=== PATIENT | female | born 1935 | race American Indian/Alaskan Native ===

== ENCOUNTER 2018-11-09 14:26 | Inpatient (IN) | payer MEDICARE ==
--- NOTE | 2018-11-09 14:39 | Event Note ---
ED Screening Note ED Screening Note: sp glf at home to er via ems pt states she got up to get lunch and fell hit head and arm smells of urine found 30 m later per pt charge nurse aware This initial assessment/diagnostic orders/clinical plan/treatment(s) is/are subject to change based on patients health status, clinical progression and re- assessment by fellow clinical providers in the ED. Further treatment and workup at subsequent clinical providers discretion. Patient/guardian urged not to elope from the ED as their condition may be serious if not clinically assessed and managed. Initial orders include: labs ua exam on stretcher and xrays as appropriate
[2018-11-09 15:09] LABS: Hematocrit 31.4 % (30.3-42.9); Mean Corpuscular HGB Conc 35 % (30-34); Mean Corpuscular Hemoglobin 35 pg (28-32); Mean Corpuscular Volume 99 fl (79-97); Platelet Count 275 K/mm3 (140-440); Red Blood Count 3.18 M/mm3 (3.65-5.03)
[2018-11-09 15:33] LABS: Calcium 11.3 mg/dL (8.4-10.2)
[2018-11-09 15:49] LABS: Chol/HDL Ratio 2.23 %
--- NOTE | 2018-11-09 16:19 | XRay Report ---
CHEST 1 VIEW INDICATION: CHEST PAIN. COMPARISON: None. FINDINGS: Support devices: None. Heart: Within normal limits. Lungs: No acute air space or interstitial disease. Bronchiectasis of the right lung base. Pleura: No significant pleural effusion. No pneumothorax. Additional findings: None. IMPRESSION: 1. No acute findings. Signer Name: Al Bruno MD Signed: 11/09/2018 4:15 PM Workstation Name: [id number]
[2018-11-09 16:27] LABS: Albumin 4.2 g/dL (3.9-5); Bilirubin,Direct 0.3 mg/dL (0-0.2)
--- NOTE | 2018-11-09 17:32 | Cat Scan Report ---
CT head without contrast Clinical history: Headache, fall. FINDINGS: No previous exams are available for comparison. There is moderate cerebral white matter dis ease most consistent with microvascular angiopathy. There is also moderate cerebral atrophy with asso ciated prominence of the ventricular system. There is a hematoma involving the left lateral scalp. However, there is no clear CT evidence of acute intracranial hemorrhage or significant mass effect. The visualized paranasal sinuses are clear. The calvarium appears intact. All CT scans at this location are performed using the CT dose reduction for ALA[place]lee by means of automated exposure control. IMPRESSION: There is a hematoma involving the left lateral scalp without CT evidence of acute intracranial hemorr melia. 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 Signer Name: Michael Topete MD Signed: 11/09/2018 5:27 PM Workstation Name: [id number]
--- NOTE | 2018-11-09 17:39 | Cat Scan Report ---
CT cervical spine without contrast Clinical history: Neck pain, trauma. FINDINGS: No previous exams are available for comparison. The cystic changes along the base of the od ontoid appear to be on an advanced degenerative basis at. There are mild adjacent hypertrophic change s at. There is no clear CT evidence of acute fracture involving the cervical spine. There is a central disc protrusion at C4-5 which appears to mildly flatten the ventral cord. The face t and uncovertebral joint hypertrophy result in marked neural foraminal narrowing bilaterally. There is moderate disc space narrowing with mild endplate changes at C4-5 and C5-6 at. There is marke d right and moderate left foraminal narrowing at C4-5. There is moderate to marked left foraminal samia rowing at C5-6. The right-sided osteophyte/disc complex at this level mildly flattens the right ventr al cord. The spondylosis at C6-7 effaces the ventral subarachnoid space at. There is marked right and moderate left neural foraminal narrowing at. There is suggestion of minimal anterolisthesis at C7-T1 which is likely on a degenerative basis given the facet joint hypertrophy at. There is associated mild to mod erate foraminal narrowing. No prevertebral soft tissue fluid collections are identified. There is dense atherosclerotic calcific ation involving the carotid bifurcations. All CT scans at this location are performed using the CT do se reduction for ALARA by means of automated exposure control. IMPRESSION: There is no CT evidence of acute fracture involving the cervical spine. There are multilevel advanced degenerative changes as detailed above. Signer Name: Michael Topete MD Signed: 11/09/2018 5:34 PM Workstation Name: [id number]
[2018-11-09] MEDS ORDERED: NACL 0.9% 1000 ML 1,000 ML IV ONE (19:24)
[2018-11-09] MEDS ORDERED: ASPIRIN PO ONE (19:51)
--- NOTE | 2018-11-09 19:52 | Emergency Department Report ---
ED Fall HPI - General Chief Complaint: Fall Stated Complaint: FALL/BACK PAIN Time Seen by Provider: 11/09/18 14:38 Source: patient Mode of arrival: Wheelchair Limitations: No Limitations - History of Present Illness Initial Comments: 83-year-old female with past medical history diabetes, hypertension, and previous A. fib presents to the hospital for fall and generalized weakness. On October 21 patient had increasing her Lasix increased to 40 mg due to persistent chronic left leg swelling and pain. Patient also takes a combination medication that includes hydrochlorothiazide. The last few weeks she has been having increased dizziness, nausea, and generalized weakness today while trying to ambulate she fell and when is able to get up she did strike the left side of her head and denies LOC. Patient only complains of left leg pain at this time which apparently is chronic. No complaints of vomiting, diarrhea, or fever. Patient denies anticoagulants use. Daughter at the bedside assisting with history of present illness. Her doctors are currently [facility] affiliated the last 6 months and wear with [facility] prior to that. - Related Data Home Medications Medication Instructions Recorded Confirmed Last Taken Furosemide [Lasix TAB] 40 mg PO DAILY 11/09/18 11/09/18 Unknown Losartan/Hydrochlorothiazide 1 each PO DAILY 11/09/18 11/09/18 Unknown [Losartan-Hctz 100-25 mg Tab] Metoprolol [Lopressor] 25 mg PO BID 11/09/18 11/09/18 Unknown metFORMIN [Glucophage] 500 mg PO BID 11/09/18 11/09/18 Unknown Allergies Allergy/AdvReac Type Severity Reaction Status Date / Time No Known Allergies Allergy Unverified 11/09/18 14:45 ED Review of Systems ROS: Stated complaint: FALL/BACK PAIN Other details as noted in HPI Comment: All other systems reviewed and negative ED Past Medical Hx - Past Medical History Hx Hypertension: Yes Hx Diabetes: Yes (NIDDM) Additional medical history: AFib - Surgical History Past Surgical History?: No - Social History Smoking Status: Former Smoker Substance Use Type: None - Medications Home Medications: Home Medications Medication Instructions Recorded Confirmed Last Taken Type Furosemide [Lasix TAB] 40 mg PO DAILY 11/09/18 11/09/18 Unknown History Losartan/Hydrochlorothiazide 1 each PO DAILY 11/09/18 11/09/18 Unknown History [Losartan-Hctz 100-25 mg Tab] Metoprolol [Lopressor] 25 mg PO BID 11/09/18 11/09/18 Unknown History metFORMIN [Glucophage] 500 mg PO BID 11/09/18 11/09/18 Unknown History ED Physical Exam - General Limitations: No Limitations - Other Other exam information: General: No limitations, patient is alert in no acute distress Head exam: Left parietal scalp tenderness with hematoma Eyes exam: Normal appearance, pupils equal reactive to light, extraocular movements intact ENT: Moist mucous membrane, normal oropharynx Neck exam: Normal inspection, full range of motion, no meningismus nontender Respiratory exam: Clear to auscultation bilateral, no wheezes, rales, crackles Cardiovascular: Normal rate and rhythm, normal heart sounds Abdomen: Soft, nondistended, and nontender, with normal bowel sounds, no rebound, or guarding Extremity: Full range of motion, left leg swelling greater than the right with tenderness. Back: Normal Inspection, full range of motion, no tenderness Neurologic: Alert, cranial nerves intact, equal foot dorsiflexion, limited antigravity strength (4/5) of left leg secondary to pain. Other extremities 5/5 sensation intact. Speech clear without signs of facial droop. Psychiatric: normal affect, normal mood Skin: Warm, dry, intact ED Course Vital Signs 11/09/18 11/09/18 11/09/18 14:43 17:30 19:16 Temperature 97.6 F Pulse Rate 70 72 74 Respiratory 18 22 20 Rate Blood Pressure 159/69 124/65 O2 Sat by Pulse 100 100 100 Oximetry - Consultations Consultation #1: 11/09/18 20:27 case d/w Dr Dwight tate, will consult ED Medical Decision Making - Lab Data Result diagrams: 11/09/18 14:55 11/09/18 14:55 Lab Results 11/09/18 11/09/18 11/09/18 Range/Units 14:55 14:55 15:44 WBC 6.0 (4.5-11.0) K/mm3 RBC 3.18 L (3.65-5.03) M/mm3 Hgb 11.0 (10.1-14.3) gm/dl Hct 31.4 (30.3-42.9) % MCV 99 H (79-97) fl MCH 35 H (28-32) pg MCHC 35 H (30-34) % RDW 13.0 L (13.2-15.2) % Plt Count 275 (140-440) K/mm3 Sodium 120 L (137-145) mmol/L Potassium 4.2 (3.6-5.0) mmol/L Chloride 77.3 L (98-107) mmol/L Carbon Dioxide 22 (22-30) mmol/L Anion Gap 25 mmol/L BUN 78 H (7-17) mg/dL Creatinine 2.0 H (0.7-1.2) mg/dL Estimated GFR 24 ml/min BUN/Creatinine Ratio 39 % Glucose 149 H (65-100) mg/dL Calcium 11.3 H (8.4-10.2) mg/dL Total Bilirubin (0.1-1.2) mg/dL Direct Bilirubin (0-0.2) mg/dL Indirect Bilirubin mg/dL AST (5-40) units/L ALT (7-56) units/L Alkaline Phosphatase (35-129) units/L Total Creatine Kinase (30-135) units/L Troponin T 0.032 H (0.00-0.029) ng/mL NT-Pro-B Natriuret Pep 1013 H (0-900) pg/mL Total Protein (6.3-8.2) g/dL Albumin (3.9-5) g/dL Albumin/Globulin Ratio % Triglycerides 57 (2-149) mg/dL Cholesterol 208 H (50-199) mg/dL LDL Cholesterol Direct 126 (50-130) mg/dL HDL Cholesterol 93 H (40-59) mg/dL Cholesterol/HDL Ratio 2.23 % 11/09/18 11/09/18 Range/Units 15:44 19:35 WBC (4.5-11.0) K/mm3 RBC (3.65-5.03) M/mm3 Hgb (10.1-14.3) gm/dl Hct (30.3-42.9) % MCV (79-97) fl MCH (28-32) pg MCHC (30-34) % RDW (13.2-15.2) % Plt Count (140-440) K/mm3 Sodium (137-145) mmol/L Potassium (3.6-5.0) mmol/L Chloride (98-107) mmol/L Carbon Dioxide (22-30) mmol/L Anion Gap mmol/L BUN (7-17) mg/dL Creatinine (0.7-1.2) mg/dL Estimated GFR ml/min BUN/Creatinine Ratio % Glucose (65-100) mg/dL Calcium (8.4-10.2) mg/dL Total Bilirubin 1.10 (0.1-1.2) mg/dL Direct Bilirubin 0.3 H (0-0.2) mg/dL Indirect Bilirubin 0.8 mg/dL AST 26 (5-40) units/L ALT 13 (7-56) units/L Alkaline Phosphatase 59 (35-129) units/L Total Creatine Kinase 162 H (30-135) units/L Troponin T 0.032 H (0.00-0.029) ng/mL NT-Pro-B Natriuret Pep (0-900) pg/mL Total Protein 7.8 (6.3-8.2) g/dL Albumin 4.2 (3.9-5) g/dL Albumin/Globulin Ratio 1.2 % Triglycerides (2-149) mg/dL Cholesterol (50-199) mg/dL LDL Cholesterol Direct (50-130) mg/dL HDL Cholesterol (40-59) mg/dL Cholesterol/HDL Ratio % - EKG Data -: EKG Interpreted by [facility] EKG shows normal: sinus rhythm, axis (qrs -20), QRS complexes (qrsd 91), ST-T waves (nos stemi) Rate: normal (73) - EKG Data When compared to previous EKG there are: previous EKG unavailable - Radiology Data Radiology results: report reviewed CHEST 1 VIEW INDICATION: CHEST PAIN. COMPARISON: None. FINDINGS: Support devices: None. Heart: Within normal limits. Lungs: No acute air space or interstitial disease. Bronchiectasis of the right lung base. Pleura: No significant pleural effusion. No pneumothorax. Additional findings: None. IMPRESSION: 1. No acute findings. CT head without contrast Clinical history: Headache, fall. FINDINGS: No previous exams are available for comparison. There is moderate cerebral white matter disease most consistent with microvascular angiopathy. There is also moderate cerebral atrophy with associated prominence of the ventricular system. There is a hematoma involving the left lateral scalp. However, there is no clear CT evidence of acute intracranial hemorrhage or significant mass effect. The visualized paranasal sinuses are clear. The calvarium appears intact. All CT scans at this location are performed using the CT dose reduction for ALARA by means of automated exposure control. IMPRESSION: There is a hematoma involving the left lateral scalp without CT evidence of acute intracranial hemorrhage. 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 CT cervical spine without contrast Clinical history: Neck pain, trauma. FINDINGS: No previous exams are available for comparison. The cystic changes along the base of the odontoid appear to be on an advanced degenerative basis at. There are mild adjacent hypertrophic changes at. There is no clear CT evidence of acute fracture involving the cervical spine. There is a central disc protrusion at C4-5 which appears to mildly flatten the ventral cord. The facet and uncovertebral joint hypertrophy result in marked neural foraminal narrowing bilaterally. There is moderate disc space narrowing with mild endplate changes at C4-5 and C5-6 at. There is marked right and moderate left foraminal narrowing at C4-5. There is moderate to marked left foraminal narrowing at C5-6. The right-sided osteophyte/disc complex at this level mildly flattens the right ventral cord. The spondylosis at C6-7 effaces the ventral subarachnoid space at. There is marked right and moderate left neural foraminal narrowing at. There is suggestion of minimal anterolisthesis at C7-T1 which is likely on a degenerative basis given the facet joint hypertrophy at. There is associated mild to moderate foraminal narrowing. No prevertebral soft tissue fluid collections are identified. There is dense atherosclerotic calcification involving the carotid bifurcations. All CT scans at this location are performed using the CT dose reduction for ALARA by means of automated exposure control. IMPRESSION: There is no CT evidence of acute fracture involving the cervical spine. There are multilevel advanced degenerative changes as detailed above. - Medical Decision Making She'll be admitted to the hospital for generalized weakness and hyponatremia as well as significant dehydration likely secondary to overdiuresis and poor by mouth intake. Urine collection pending at disposition. Normal saline initiated at 200 mL per hour. Nephrology consultation with Dr james. Troponin elevation noted in appears to be stable or upon repeat elective secondary to renal insufficiency. Patient admits to the hospital service for further treatment. asa was provided - Differential Diagnosis dehydration, infection, fracture, contusion, sprain Critical Care Time: No Critical care attestation.: If time is entered above; I have spent that time in minutes in the direct care of this critically ill patient, excluding procedure time. ED Disposition Clinical Impression: Generalized weakness, Fall, Scalp hematoma, Hyponatremia, Renal insufficiency, Elevated BUN, Dehydration, Leg edema, left, Elevated troponin Disposition: DC-09 OP ADMIT IP TO THIS HOSP Is pt being admited?: Yes Does the pt Need Aspirin: Yes Condition: Stable Time of Disposition: 19:51 (hospitalist)
[2018-11-09] MEDS ORDERED: ASPIRIN ONE (21:58)
[2018-11-09] MEDS ORDERED: ZOFRAN IV PRN (22:20)
[2018-11-09] MEDS ORDERED: SODIUM CHLORIDE FLUSH SYRINGE 10 ML IV PRN (22:20)
[2018-11-09] MEDS ORDERED: TYLENOL PO PRN (22:20)
--- NOTE | 2018-11-09 22:23 | History and Physical Report ---
History of Present Illness Date of examination: 11/09/18 History of present illness: 83-year-old woman with a history of hypertension, diabetes, A. fib comes to the emergency room because she had a fall today. Daughter at bedside state that on October 21 she had lower extremity edema, she followed with her primary care ph ysician who increased her Lasix. Already the patient was supposed to take her Lasix once a day but she was taking it twice daily, in addition she was on hydrochlorothiazide. Patient started having dizziness in the mornings, feeling weak and complaining of nausea Review of systems Constitutional: no weight loss, chills, fever Ears, eyes, nose, mouth and throat: no nasal congestion, no nasal discharge, no sinus pressure, no vision change, no red eye. Neck: No neck pain or rigidity. Cardiovascular: no palpitations, chest pain Respiratory: no cough, shortness of breath Gastrointestinal: no hematochezia, abdominal pain Genitourinary : no frequency , no hematuria Musculoskeletal: no joint swelling or muscle ache Integumentary: no rash, no pruritis Neurological: no parathesias, no focal weakness Endocrine: no cold or heat intolerance, no polyuria or polydipsia Hematologic/Lymphatic: no easy bruising, no easy bleeding, no gland swelling Allergic/Immunologic: no urticaria, no angioedema. PAST MEDICAL HISTORY:hypertension, diabetes, A. fib PAST SURGICAL HISTORY: None SOCIAL HISTORY: Denies alcohol, drugs, tobacco FAMILY HISTORY: Hypertension Medications and Allergies Allergies Allergy/AdvReac Type Severity Reaction Status Date / Time No Known Allergies Allergy Unverified 11/09/18 14:45 Home Medications Medication Instructions Recorded Confirmed Last Taken Type Furosemide [Lasix TAB] 40 mg PO DAILY 11/09/18 11/09/18 Unknown History Losartan/Hydrochlorothiazide 1 each PO DAILY 11/09/18 11/09/18 Unknown History [Losartan-Hctz 100-25 mg Tab] Metoprolol [Lopressor] 25 mg PO BID 11/09/18 11/09/18 Unknown History metFORMIN [Glucophage] 500 mg PO BID 11/09/18 11/09/18 Unknown History Active Meds: Active Medications Acetaminophen (Tylenol) 650 mg PO Q4H PRN PRN Reason: Pain MILD(1-3)/Fever >100.5/HOPE Enoxaparin Sodium (Lovenox) 30 mg SUB-Q QDAY RUBY Sodium Chloride (Nacl 0.9% 1000 Ml) 1,000 mls @ 200 mls/hr IV ONCE ONE Stop: 11/10/18 00:23 Last Admin: 11/09/18 19:39 Dose: 200 mls/hr Documented by: Sodium Chloride (Nacl 0.9% 1000 Ml) 1,000 mls @ 75 mls/hr IV DIRECT RUBY Ondansetron HCl (Zofran) 4 mg IV Q8H PRN PRN Reason: Nausea And Vomiting Sodium Chloride (Sodium Chloride Flush Syringe 10 Ml) 10 ml IV BID RUBY Sodium Chloride (Sodium Chloride Flush Syringe 10 Ml) 10 ml IV PRN PRN PRN Reason: LINE FLUSH Exam - Physical Exam Narrative exam: General Apperance: The patient lying in bed, breathing comfortable HEENT: Normocephalic, atraumatic. Pupils equally round and reactive to light, EOMI, no sclericterus or JVD or thyromegaly or nodule. , no carotid bruit, mucous membranes dry, no exudate or erythema Heart: S1-S2, regular is rhythm Lungs: Clear to auscultation bilaterally, breathing comfortable Abdomen: Positive bowel sounds, soft, nontender, nondistended, no organomegaly Extremities: No edema cyanosis clubbing Skin: no rash, nodule, warm and dry Neuro: cranial nerves 2-12 intact, speech is fluent, motor/sensory intact - Constitutional Vitals: Temp Pulse Resp BP Pulse Ox 97.6 F 74 20 124/65 100 11/09/18 14:43 11/09/18 19:16 11/09/18 19:16 11/09/18 19:16 11/09/18 19:16 Results - Labs CBC & Chem 7: 11/09/18 14:55 11/09/18 14:55 Labs: Abnormal lab results 11/09/18 11/09/18 11/09/18 Range/Units 14:55 14:55 15:44 RBC 3.18 L (3.65-5.03) M/mm3 MCV 99 H (79-97) fl MCH 35 H (28-32) pg MCHC 35 H (30-34) % RDW 13.0 L (13.2-15.2) % Sodium 120 L (137-145) mmol/L Chloride 77.3 L (98-107) mmol/L BUN 78 H (7-17) mg/dL Creatinine 2.0 H (0.7-1.2) mg/dL Glucose 149 H (65-100) mg/dL Calcium 11.3 H (8.4-10.2) mg/dL Direct Bilirubin (0-0.2) mg/dL Total Creatine Kinase (30-135) units/L Troponin T 0.032 H (0.00-0.029) ng/mL NT-Pro-B Natriuret Pep 1013 H (0-900) pg/mL Cholesterol 208 H (50-199) mg/dL HDL Cholesterol 93 H (40-59) mg/dL 11/09/18 11/09/18 Range/Units 15:44 19:35 RBC (3.65-5.03) M/mm3 MCV (79-97) fl MCH (28-32) pg MCHC (30-34) % RDW (13.2-15.2) % Sodium (137-145) mmol/L Chloride (98-107) mmol/L BUN (7-17) mg/dL Creatinine (0.7-1.2) mg/dL Glucose (65-100) mg/dL Calcium (8.4-10.2) mg/dL Direct Bilirubin 0.3 H (0-0.2) mg/dL Total Creatine Kinase 162 H (30-135) units/L Troponin T 0.032 H (0.00-0.029) ng/mL NT-Pro-B Natriuret Pep (0-900) pg/mL Cholesterol (50-199) mg/dL HDL Cholesterol (40-59) mg/dL - Imaging and Cardiology Chest x-ray: report reviewed CT Scan - head: report reviewed Assessment and Plan CT c/spine Assessment Acute renal failure Hyponatremia Abnormal cardiac enzymes Hypertension Diabetes History of A. fib Plan Admit to medicine Start IV fluid, monitor kidney function, renal was consulted to see the patient Check cardiac enzymes, echo Check fingersticks, initiate insulin sliding scale DVT prophylaxis
[2018-11-09] MEDS ORDERED: D50W (25GM) Syringe IV PRN (22:57)
[2018-11-09 23:45] LABS: Creatine Kinase MB 5.7 ng/mL (0.0-4.0)
[2018-11-10] MEDS: NACL 0.9% 1000 ML 1,000 ML IV SCH ×2 (00:52→15:17)
[2018-11-10 04:53] LABS: Chloride, Urine 47.4 mmolL (110-250)
[2018-11-10 05:04] LABS: Bilirubin,Urine NEG (Negative); Blood,Urine NEG (Negative); Color,Urine Yellow (Yellow); Mucus,Urine FEW /HPF; Protein,Urine <15 mg/dL mg/dL (Negative); Urobilinogen,Urine < 2.0 mg/dL (<2.0)
[2018-11-10 06:47] LABS: Basophils % (Auto) 0.4 % (0.0-1.8); Eosinophils # (Auto) 0.1 K/mm3 (0.0-0.4); Eosinophils % (Auto) 0.9 % (0.0-4.3); Hematocrit 29.8 % (30.3-42.9); Hemoglobin 10.5 gm/dl (10.1-14.3); Lymphocytes # (Auto) 1.6 K/mm3 (1.2-5.4); Lymphocytes % (Auto) 24.3 % (13.4-35.0); Mean Corpuscular HGB Conc 35 % (30-34); Mean Corpuscular Hemoglobin 35 pg (28-32); Mean Corpuscular Volume 99 fl (79-97); Monocytes # (Auto) 0.6 K/mm3 (0.0-0.8); Monocytes % (Auto) 8.9 % (0.0-7.3); Platelet Count 253 K/mm3 (140-440); Red Blood Count 3.03 M/mm3 (3.65-5.03); Red Cell Distribution Width 13.2 % (13.2-15.2)
[2018-11-10 07:02] LABS: Creatine Kinase MB 7.4 ng/mL (0.0-4.0)
[2018-11-10 07:10] LABS: Calcium 10.5 mg/dL (8.4-10.2)
--- NOTE | 2018-11-10 08:15 | Progress Note ---
Assessment and Plan Assessment and plan: --Status post fall; fall precautions, orthostatics, physical therapy occupational therapy Supportive care --Acute renal failure; secondary to vasomotor nephropathy monitor renal function, avoid nephrotoxins, creatinine levels trending down --Hyponatremia; mild improvement continue current management Closely monitor electrolytes --Nonspecific elevation of cardiac enzymes ; patient has multiple risk factors Cardiology evaluation for possible stress test versus heart cath as needed Echocardiogram for LV function and ejection fraction --Hypertension: Good control, continue current antihypertensives and when necessary medications --2Diabetes; Accu-Chek sliding scale coverage and ADA diet and insulin as needed Check hemoglobin A1c --History of paroxysmal A. fib; now in sinus rhythm , patient has history of ablation Has been in sinus rhythm ever since according to the family.discussed with c ardiologist No need for anticoagulation at this point. Start low dose aspirin --DVT prophylaxis:Lovenox Monitor closely and adjust management as needed Cardiology evaluation and recommendations noted and appreciated History Interval history: 83-year-old female patient was admitted with history of dizziness and fall, Patient has positive cardiac enzymes and acute kidney injury Patient feels slightly better no new episodes of dizziness or fall since admission Hospitalist Physical - Constitutional Vitals: Temp Pulse Resp BP Pulse Ox 97.4 F L 65 18 95/51 99 11/10/18 07:44 11/10/18 07:44 11/10/18 07:44 11/10/18 07:44 11/10/18 07:44 General appearance: Present: no acute distress, well-nourished - EENT Eyes: Present: PERRL, EOM intact - Neck Neck: Present: supple, normal ROM - Respiratory Respiratory effort: normal Respiratory: bilateral: diminished, negative: rales, rhonchi, wheezing - Cardiovascular Rhythm: regular Heart Sounds: Present: S1 & S2 - Extremities Extremities: no ischemia, No edema - Abdominal General gastrointestinal: soft, non-tender, non-distended, normal bowel sounds - Integumentary Integumentary: Present: clear, warm - Psychiatric Psychiatric: appropriate mood/affect, cooperative - Neurologic Neurologic: CNII-XII intact, moves all extremities Results - Labs CBC & Chem 7: 11/10/18 04:17 11/10/18 04:17 Labs: Laboratory Last Values WBC 6.6 K/mm3 (4.5-11.0) 11/10/18 04:17 RBC 3.03 M/mm3 (3.65-5.03) L 11/10/18 04:17 Hgb 10.5 gm/dl (10.1-14.3) 11/10/18 04:17 Hct 29.8 % (30.3-42.9) L 11/10/18 04:17 MCV 99 fl (79-97) H 11/10/18 04:17 MCH 35 pg (28-32) H 11/10/18 04:17 MCHC 35 % (30-34) H 11/10/18 04:17 RDW 13.2 % (13.2-15.2) 11/10/18 04:17 Plt Count 253 K/mm3 (140-440) 11/10/18 04:17 Lymph % (Auto) 24.3 % (13.4-35.0) 11/10/18 04:17 [place] % (Auto) 8.9 % (0.0-7.3) H 11/10/18 04:17 Eos % (Auto) 0.9 % (0.0-4.3) 11/10/18 04:17 Baso % (Auto) 0.4 % (0.0-1.8) 11/10/18 04:17 Lymph # 1.6 K/mm3 (1.2-5.4) 11/10/18 04:17 [place] # 0.6 K/mm3 (0.0-0.8) 11/10/18 04:17 Eos # 0.1 K/mm3 (0.0-0.4) 11/10/18 04:17 Baso # 0.0 K/mm3 (0.0-0.1) 11/10/18 04:17 Seg Neutrophils % 65.5 % (40.0-70.0) 11/10/18 04:17 Seg Neutrophils # 4.3 K/mm3 (1.8-7.7) 11/10/18 04:17 Sodium 126 mmol/L (137-145) L 11/10/18 04:17 Potassium 4.4 mmol/L (3.6-5.0) 11/10/18 04:17 Chloride 84.2 mmol/L (98-107) L 11/10/18 04:17 Carbon Dioxide 27 mmol/L (22-30) 11/10/18 04:17 19 mmol/L 11/10/18 04:17 BUN 75 mg/dL (7-17) H 11/10/18 04:17 1.9 mg/dL (0.7-1.2) H 11/10/18 04:17 Estimated GFR 30 ml/min 11/10/18 04:17 39 % 11/10/18 04:17 Glucose 136 mg/dL (65-100) H 11/10/18 04:17 285 Mosm/kg 11/09/18 19:35 Calcium 10.5 mg/dL (8.4-10.2) H 11/10/18 04:17 1.10 mg/dL (0.1-1.2) 11/09/18 15:44 0.3 mg/dL (0-0.2) H 11/09/18 15:44 0.8 mg/dL 11/09/18 15:44 AST 26 units/L (5-40) 11/09/18 15:44 ALT 13 units/L (7-56) 11/09/18 15:44 59 units/L (35-129) 11/09/18 15:44 286 units/L (30-135) H 11/10/18 04:17 CK-MB (CK-2) 7.4 ng/mL (0.0-4.0) H 11/10/18 04:17 CK-MB (CK-2) Rel Index 2.5 (0-4) 11/10/18 04:17 0.049 ng/mL (0.00-0.029) H 11/10/18 04:17 NT-Pro-B Natriuret Pep 1013 pg/mL (0-900) H 11/09/18 15:44 7.8 g/dL (6.3-8.2) 11/09/18 15:44 4.2 g/dL (3.9-5) 11/09/18 15:44 1.2 % 11/09/18 15:44 Triglycerides 57 mg/dL (2-149) 11/09/18 14:55 Cholesterol 208 mg/dL (50-199) H 11/09/18 14:55 126 mg/dL (50-130) 11/09/18 14:55 93 mg/dL (40-59) H 11/09/18 14:55 2.23 % 11/09/18 14:55 Yellow (Yellow) 11/10/18 04:18 Clear (Clear) 11/10/18 04:18 7.0 (5.0-7.0) 11/10/18 04:18 Ur Specific [place] 1.008 (1.003-1.030) 11/10/18 04:18 <15 mg/dl mg/dL (Negative) 11/10/18 04:18 Neg mg/dL (Negative) 11/10/18 04:18 Neg mg/dL (Negative) 11/10/18 04:18 Neg (Negative) 11/10/18 04:18 Neg (Negative) 11/10/18 04:18 Neg (Negative) 11/10/18 04:18 < 2.0 mg/dL (<2.0) 11/10/18 04:18 Ur Leukocyte Esterase Mod (Negative) 11/10/18 04:18 1.0 /HPF (0.0-6.0) 11/10/18 04:18 1.0 /HPF (0.0-6.0) 11/10/18 04:18 U Epithel Cells (Auto) 1.0 /HPF (0-13.0) 11/10/18 04:18 Few /HPF 11/10/18 04:18 276 Mosm/kg 11/10/18 04:18 57 mmol/L 11/10/18 04:18 47.4 mmolL (110-250) L 11/10/18 04:18 Active Medications - Current Medications Current Medications: Generic Name Dose Route Start Last Admin Trade Name Davidq PRN Reason Stop Dose Admin Acetaminophen 650 mg 11/09/18 22:20 Tylenol PO Q4H PRN Pain MILD(1-3)/Fever >100.5/HOPE Dextrose 50 ml 11/09/18 22:57 D50w (25gm) Syringe IV PRN PRN Hypoglycemia Enoxaparin Sodium 30 mg 11/10/18 10:00 Lovenox SUB-Q QDAY RUBY Sodium Chloride 1,000 mls @ 75 mls/hr 11/09/18 23:00 11/10/18 00:52 Nacl 0.9% 1000 Ml IV 75 mls/hr DIRECT RUBY Administration Insulin Human Lispro 0 unit 11/10/18 07:30 Humalog SUB-Q ACHS [facility] Protocol Metoprolol Tartrate 25 mg 11/10/18 10:00 Lopressor PO BID [facility] Ondansetron HCl 4 mg 11/09/18 22:20 Zofran IV Q8H PRN Nausea And Vomiting Sodium Chloride 10 ml 11/10/18 10:00 Sodium Chloride Flush Syringe 10 Ml IV BID [facility] Sodium Chloride 10 ml 11/09/18 22:20 Sodium Chloride Flush Syringe 10 Ml IV PRN PRN LINE FLUSH
[2018-11-10] MEDS: LOPRESSOR PO SCH ×2 (09:04→21:57)
[2018-11-10] MEDS: HumaLOG SUB-Q SCH ×4 (09:32→21:58)
[2018-11-10] MEDS: SODIUM CHLORIDE FLUSH SYRINGE 10 ML IV SCH ×2 (09:32→21:58)
[2018-11-10] MEDS: LOVENOX SUB-Q SCH (09:32)
--- NOTE | 2018-11-10 11:41 | Consultation ---
History of Present Illness Consult date: 11/10/18 Requesting physician: ELIZABETH DIMAS Consult reason: atrial fibrillation History of present illness: The patient has a history of atrial fibrillation for which she underwent radiofrequency ablation a few years ago. She claims that for the past few days, her appetite has been poor. Due to leg edema, recently, she was placed on furosemide while on Losartan HCT. According to her daughter, for a while, the patient was taking furosemide twice daily instead of once daily as prescribed. Yesterday, she became very weak and sustained a fall without loss of consciousness or any major injuries. Her troponin level is mildly elevated and she is significantly hyponatremic with elevated BUN and creatinine levels. She denies chest pain, dyspnea, palpitations or dizziness. On the monitor, she has been in sinus rhythm with first-degree AV block and frequent PACs. This morning, she had 3 brief pauses due to blocked PACs lasting about 2 seconds. Past History Past Medical History: atrial fib (s/p RF ablation), diabetes, hypertension, hyperlipidemia Past Surgical History: No surgical history Social history: denies: smoking, alcohol abuse Family history: denies: CAD Medications and Allergies Allergies Allergy/AdvReac Type Severity Reaction Status Date / Time No Known Allergies Allergy Unverified 11/09/18 14:45 Home Medications Medication Instructions Recorded Confirmed Last Taken Type Furosemide [Lasix TAB] 40 mg PO DAILY 11/09/18 11/09/18 Unknown History Losartan/Hydrochlorothiazide 1 each PO DAILY 11/09/18 11/09/18 Unknown History [Losartan-Hctz 100-25 mg Tab] Metoprolol [Lopressor] 25 mg PO BID 11/09/18 11/09/18 Unknown History metFORMIN [Glucophage] 500 mg PO BID 11/09/18 11/09/18 Unknown History Active Meds: Active Medications Acetaminophen (Tylenol) 650 mg PO Q4H PRN PRN Reason: Pain MILD(1-3)/Fever >100.5/HOPE Dextrose (D50w (25gm) Syringe) 50 ml IV PRN PRN PRN Reason: Hypoglycemia Enoxaparin Sodium (Lovenox) 30 mg SUB-Q QDAY [facility] Last Admin: 11/10/18 09:32 Dose: 30 mg Documented by: Sodium Chloride (Nacl 0.9% 1000 Ml) 1,000 mls @ 75 mls/hr IV DIRECT RUBY Last Admin: 11/10/18 00:52 Dose: 75 mls/hr Documented by: Insulin Human Lispro (Humalog) 0 unit SUB-Q ACHS [facility]; Protocol Last Admin: 11/10/18 09:32 Dose: 2 unit Documented by: Metoprolol Tartrate (Lopressor) 25 mg PO BID [facility] Last Admin: 11/10/18 09:04 Dose: Not Given Documented by: Ondansetron HCl (Zofran) 4 mg IV Q8H PRN PRN Reason: Nausea And Vomiting Sodium Chloride (Sodium Chloride Flush Syringe 10 Ml) 10 ml IV BID [facility] Last Admin: 11/10/18 09:32 Dose: 10 ml Documented by: Sodium Chloride (Sodium Chloride Flush Syringe 10 Ml) 10 ml IV PRN PRN PRN Reason: LINE FLUSH Review of Systems Constitutional: no fever, no chills Ears, nose, mouth and throat: no ear pain, no ear discharge, no sore throat Cardiovascular: no chest pain, no palpitations, no lightheadedness, no shortness of breath Respiratory: no cough, no hemoptysis, no shortness of breath Gastrointestinal: no nausea, no vomiting, no diarrhea, no constipation Genitourinary Female: no dysuria, no urinary frequency Rectal: no pain, no bleeding Musculoskeletal: no neck stiffness, no neck pain, no myalgias Integumentary: no rash, no pruritis Neurological: no weakness, no parathesias, no headaches Endocrine: no cold intolerance, no heat intolerance Hematologic/Lymphatic: no easy bruising, no easy bleeding Allergic/Immunologic: no urticaria, no wheezing Physical Examination Vital Signs Last Vital Signs Temp 97.4 F L 11/10/18 07:44 Pulse 65 11/10/18 07:44 Resp 18 11/10/18 07:44 BP 95/51 11/10/18 07:44 Pulse Ox 98 11/10/18 09:56 General appearance: no acute distress HEENT: Positive: EOMI, Normocephaly, Mucus Membranes Moist Neck: Positive: neck supple, trachea midline Cardiac: Positive: Reg Rate and Rhythm, S1/S2 Lungs: Positive: clear to auscultation Neuro: Positive: Grossly Intact Abdomen: Positive: Soft, Active Bowel Sounds. Negative: Tender Skin: Positive: Clear. Negative: Rash Musculoskeletal: Normal Range of Motion Extremities: Present: normal. Absent: edema Results 11/10/18 04:17 11/10/18 04:17 Cardiac Enzymes 11/09/18 11/09/18 11/10/18 Range/Units 15:44 23:16 04:17 AST 26 (5-40) units/L CK-MB (CK-2) 5.7 H 7.4 H (0.0-4.0) ng/mL Lipids 11/09/18 Range/Units 14:55 Triglycerides 57 (2-149) mg/dL Cholesterol 208 H (50-199) mg/dL HDL Cholesterol 93 H (40-59) mg/dL Cholesterol/HDL Ratio 2.23 % CBC 11/09/18 11/10/18 Range/Units 14:55 04:17 WBC 6.0 6.6 (4.5-11.0) K/mm3 RBC 3.18 L 3.03 L (3.65-5.03) M/mm3 Hgb 11.0 10.5 (10.1-14.3) gm/dl Hct 31.4 29.8 L (30.3-42.9) % Plt Count 275 253 (140-440) K/mm3 Lymph # 1.6 (1.2-5.4) K/mm3 [place]ak[place] # 0.6 (0.0-0.8) K/mm3 Eos # 0.1 (0.0-0.4) K/mm3 Baso # 0.0 (0.0-0.1) K/mm3 Comprehensive Metabolic Panel 11/09/18 11/09/18 11/10/18 Range/Units 14:55 15:44 04:17 Sodium 120 L 126 L (137-145) mmol/L Potassium 4.2 4.4 (3.6-5.0) mmol/L Chloride 77.3 L 84.2 L (98-107) mmol/L Carbon Dioxide 22 27 (22-30) mmol/L BUN 78 H 75 H (7-17) mg/dL Creatinine 2.0 H 1.9 H (0.7-1.2) mg/dL Glucose 149 H 136 H (65-100) mg/dL Calcium 11.3 H 10.5 H (8.4-10.2) mg/dL Direct Bilirubin 0.3 H (0-0.2) mg/dL Indirect Bilirubin 0.8 mg/dL AST 26 (5-40) units/L ALT 13 (7-56) units/L Alkaline Phosphatase 59 (35-129) units/L Total Protein 7.8 (6.3-8.2) g/dL Albumin 4.2 (3.9-5) g/dL - Imaging and Cardiology EKG: image reviewed EKG interpretations - Telemetry EKG Rhythm: Sinus Rhythm - EKG Sinus rhythms and dysrhythmias: sinus rhythm Supraventricular dysrhythmia: atrial premature complexe, non-conducted atrial leo Assessment and Plan Continue IV hydration. I agree with current regimen. We will observe her rhythm on the monitor. Obtain echocardiogram. - Patient Problems (1) Status post fall Current Visit: Yes Status: Acute (2) Generalized weakness Current Visit: Yes Status: Acute (3) ALEAH (acute kidney injury) Current Visit: Yes Status: Acute (4) Paroxysmal atrial fibrillation Current Visit: Yes Status: Chronic (5) H/O cardiac radiofrequency ablation Current Visit: Yes Status: Chronic (6) Dehydration Current Visit: Yes Status: Acute (7) Hyponatremia Current Visit: Yes Status: Acute (8) Diabetes mellitus Current Visit: Yes Status: Chronic Qualifiers: Diabetes mellitus type: type 2
--- NOTE | 2018-11-10 12:23 | Consultation ---
History of Present Illness - History of Present Illness Thank you for the consultation ! Patient was evaluated today My assessment and plan are as follows; Isotonic variety of hyponatremia likely in a patient who was taking hydrochlorot hiazide as well as furosemide in outpatient setting these medications should be administered with caution in patients who are older than 65 years of age Her hyponatremia appears to be improving well and at this time as long as she will continue to stay off hydrochlorothiazide hopefully should continue to improve no aggressive measures are required here for 3% saline as indicated no sodium chloride tablets will be given Maintain fluid restriction normal diet follow-up on renal function Hopefully the sodium will start correcting Renal failure patient's creatinine is currently stable at 1.9 white likely with her age and multiple comorbidities she may have underlying chronic kidney disease Hypercalcemia improving patient needs to stay off hydrochlorothiazide Calcium is already improving to 10.5 Mild anemia which could be multifactorial Patient was adequately counseled and educated regarding multiple renal related issues. Renal prognosis remains guarded at this time All renal related questions were answered and simple Yoruba pertinent lab studies as well as imaging results were also discussed with patient We will continue to follow and make recommendations from renal standpoint. Thank you for the consultation Author: Azam Joel M.D. [facility], [address] [place] [address] Tel; [phone] Source of information: From patient History of present illness Patient is 83-year-old -[place] female who has been admitted here with dizziness and falls and was also noted to be hyponatremic, patient has been treated with hydrochlorothiazide as well as Lasix in the outpatient setting she will also taking losartan. Patient states that prior to arrival she was feeling extremely weak and dizzy and upon standing was very lightheaded currently she has been Off hydrochlorothiazide and Lasix and her sodium continues to improve Her creatinine is currently stable at 1.9 Past medical history is significant for Diabetes Hypertension ? Chronic kidney diseas Leg swelling chronic Atrial fibrillation Current allergies: None Home medication present medication: Reviewed Social history: Reviewed Family history: Reviewed Review of systems positive for generalized weakness fatigue leg swelling dizziness and fall Patient is currently being followed by general care She is not a very good historian All other review of systems negative Physical examination Vitals: Reviewed General: No acute distress HEENT: Oral mucosa very dry no pallor or icterus Neck: Supple without any JVD thyromegaly or nodular mass Chest: Clear to auscultation Heart: Regular rate and rhythm S1-S2 heard no S3-S4 Abdomen: Soft nontender, bowel sounds present no renal bruit no suprapubic masses no CVA tenderness noted Extremity: Minimal edema patient mostly has dry skin no peripheral cyanosis Endocrine: Thyroid not enlarged Psychiatric: No agitation and aggression noted Musculoskeletal: No joint effusion noted Labs and x-rays: Reviewed from this admission Past History Past Medical History: atrial fib (s/p RF ablation), diabetes, hypertension, hyperlipidemia Past Surgical History: No surgical history Social history: denies: smoking, alcohol abuse Family history: denies: CAD Medications and Allergies Allergies Allergy/AdvReac Type Severity Reaction Status Date / Time No Known Allergies Allergy Unverified 11/09/18 14:45 Home Medications Medication Instructions Recorded Confirmed Last Taken Type Furosemide [Lasix TAB] 40 mg PO DAILY 11/09/18 11/09/18 Unknown History Losartan/Hydrochlorothiazide 1 each PO DAILY 11/09/18 11/09/18 Unknown History [Losartan-Hctz 100-25 mg Tab] Metoprolol [Lopressor] 25 mg PO BID 11/09/18 11/09/18 Unknown History metFORMIN [Glucophage] 500 mg PO BID 11/09/18 11/09/18 Unknown History Active Meds: Active Medications Acetaminophen (Tylenol) 650 mg PO Q4H PRN PRN Reason: Pain MILD(1-3)/Fever >100.5/HOPE Dextrose (D50w (25gm) Syringe) 50 ml IV PRN PRN PRN Reason: Hypoglycemia Enoxaparin Sodium (Lovenox) 30 mg SUB-Q QDAY [facility] Last Admin: 11/10/18 09:32 Dose: 30 mg Documented by: Sodium Chloride (Nacl 0.9% 1000 Ml) 1,000 mls @ 75 mls/hr IV DIRECT [facility] Last Admin: 11/10/18 00:52 Dose: 75 mls/hr Documented by: Insulin Human Lispro (Humalog) 0 unit SUB-Q ACHS [facility]; Protocol Last Admin: 11/10/18 09:32 Dose: 2 unit Documented by: Metoprolol Tartrate (Lopressor) 25 mg PO BID [facility] Last Admin: 11/10/18 09:04 Dose: Not Given Documented by: Ondansetron HCl (Zofran) 4 mg IV Q8H PRN PRN Reason: Nausea And Vomiting Sodium Chloride (Sodium Chloride Flush Syringe 10 Ml) 10 ml IV BID [facility] Last Admin: 11/10/18 09:32 Dose: 10 ml Documented by: Sodium Chloride (Sodium Chloride Flush Syringe 10 Ml) 10 ml IV PRN PRN PRN Reason: LINE FLUSH Exam - Vital Signs Vital signs: Vital Signs Temp Pulse Resp BP Pulse Ox 97.6 F 70 18 159/69 100 11/09/18 14:43 11/09/18 14:43 11/09/18 14:43 11/09/18 14:43 11/09/18 14:43 Results - Lab Results 11/10/18 04:17 11/10/18 04:17 Most recent lab results Calcium 10.5 mg/dL (8.4-10.2) H 11/10/18 04:17 57 mmol/L 11/10/18 04:18
[2018-11-11] MEDS: NACL 0.9% 1000 ML 1,000 ML IV SCH ×2 (03:09→18:05)
[2018-11-11 05:14] LABS: Calcium 9.7 mg/dL (8.4-10.2)
--- NOTE | 2018-11-11 09:03 | Progress Note ---
Subjective Interval history: Patient was seen today for follow-up of multiple renal related issues No complaints of any chest pain pressure or shortness of breath Interdisciplinary notes that also reviewed sodium is slowly improving She is willing to follow-up in the office Events of 24 hours vitals labs intake output medications were reviewed Past medical history: Reviewed Family history: Reviewed Social history: Reviewed Allergies: Reviewed Physical examination: Vitals: Reviewed HEENT: No pallor or icterus oral mucosa moist Neck: Supple no JVD no thyromegaly Chest: Bilateral clear to auscultation anteriorly Heart: Regular rate and rhythm S1-S2 heard no S3-S4 Abdomen: Soft nontender no voluntary guarding rigidity rebound Extremity: Dry skin less than 1+ peripheral edema Psychiatric: No evidence of agitation and aggression noted Dermatology: No petechial rashes Labs and x-rays: Reviewed from today Assessment and plan Acute kidney injury, renal function appears to have markedly improved patient mostly appeared to be prerenal due to effect of diuretics There is no evidence of suggest acute tubular necrosis Hyponatremia likely this was induced by diuretics which should be avoided for now maintain fluid and sodium restriction and follow-up Thiazide-induced hyponatremia usually auto corrects which is what has happened here it should be avoided in elderly patients altogether if possible especially given the have hyponatremia Patient has been adequately counseled and educated regarding all the renal- related issues I can see her for follow-up in the office next week more than 35 minutes was spent in direct patient care today Patient was adequately counseled and educated regarding all the renal related issues Laboratory studies, pertinent for discussed with patient All questions were answered and simple Georgian We'll continue to follow and make recommendation for renal standpoint, Objective - Vital Signs Vital signs: Vital Signs - 12hr 11/10/18 11/10/18 11/10/18 21:57 22:00 22:15 Temperature Pulse Rate 73 Pulse Rate [ 73 Apical] Respiratory 18 Rate Blood Pressure 110/59 Blood Pressure [Right] O2 Sat by Pulse 96 96 Oximetry 11/10/18 11/11/18 11/11/18 23:50 00:00 05:07 Temperature 98.0 F 97.7 F Pulse Rate 56 L 60 Pulse Rate [ Apical] Respiratory 18 18 18 Rate Blood Pressure 90/54 113/65 Blood Pressure 97/56 [Right] O2 Sat by Pulse 96 98 Oximetry - Lab 11/12/18 04:35 11/12/18 04:35 Most recent lab results Calcium 9.7 mg/dL (8.4-10.2) 11/11/18 03:42 57 mmol/L 11/10/18 04:18 Medications & Allergies - Medications Allergies/Adverse Reactions: Allergies No Known Allergies Allergy (Unverified 11/09/18 14:45) Home Medications: Home Medications Medication Instructions Recorded Confirmed Last Taken Type Furosemide [Lasix TAB] 40 mg PO DAILY 11/09/18 11/09/18 Unknown History Losartan/Hydrochlorothiazide 1 each PO DAILY 11/09/18 11/09/18 Unknown History [Losartan-Hctz 100-25 mg Tab] Metoprolol [Lopressor] 25 mg PO BID 11/09/18 11/09/18 Unknown History metFORMIN [Glucophage] 500 mg PO BID 11/09/18 11/09/18 Unknown History Active Medications: Generic Name Dose Route Start Last Admin Trade Name Freq PRN Reason Stop Dose Admin Acetaminophen 650 mg 11/09/18 22:20 Tylenol PO Q4H PRN Pain MILD(1-3)/Fever >100.5/HOPE Aspirin 81 mg 11/11/18 10:00 Halfprin Ec PO QDAY RUBY Dextrose 50 ml 11/09/18 22:57 D50w (25gm) Syringe IV PRN PRN Hypoglycemia Enoxaparin Sodium 30 mg 11/10/18 10:00 11/10/18 09:32 Lovenox SUB-Q 30 mg QDAY [facility] Administration Sodium Chloride 1,000 mls @ 75 mls/hr 11/09/18 23:00 11/11/18 03:09 Nacl 0.9% 1000 Ml IV 75 mls/hr DIRECT [facility] Administration Insulin Human Lispro 0 unit 11/10/18 07:30 11/10/18 21:58 Humalog SUB-Q Not Given ACHS [facility] Protocol Metoprolol Tartrate 25 mg 11/10/18 10:00 11/10/18 21:57 Lopressor PO 25 mg BID [facility] Administration Ondansetron HCl 4 mg 11/09/18 22:20 Zofran IV Q8H PRN Nausea And Vomiting Sodium Chloride 10 ml 11/10/18 10:00 11/10/18 21:58 Sodium Chloride Flush Syringe 10 Ml IV 10 ml BID [facility] Administration Sodium Chloride 10 ml 11/09/18 22:20 Sodium Chloride Flush Syringe 10 Ml IV PRN PRN LINE FLUSH
--- NOTE | 2018-11-11 09:05 | Progress Note ---
Assessment and Plan Assessment and plan: --History of paroxysmal A. fib; Telemetry checked patient is in A. fib with a ventricular rate of 108,this morning patient has history of ablation , cardiology following Has been in sinus rhythm ever since ablation according to the family. 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 anticoagulation with Eliquis,monitor H & H --History of fall; fall precautions, orthostatics, physical therapy occupational therapy Supportive care --Acute renal failure; secondary to vasomotor nephropathy monitor renal function, avoid nephrotoxins, creatinine levels trending down --Hyponatremia; mild improvement continue current management Closely monitor electrolytes --Nonspecific elevation of cardiac enzymes ; patient has multiple risk factors Cardiology evaluation for possible stress test versus heart cath as needed Echocardiogram for LV function and ejection fraction --Hypertension: Good control, continue current antihypertensives and when necessary medications --2Diabetes; Accu-Chek sliding scale coverage and ADA diet and insulin as needed Check hemoglobin A1c --DVT prophylaxis:Eliquis Monitor closely and adjust management as needed Cardiology evaluation and recommendations noted and appreciated History Interval history: Patient seen and examined medical records reviewed Remains intermittent A. fib with rapid ventricular rate No new episodes of falls Physical therapy and occupation therapy evaluated the patient Vital signs noted Hospitalist Physical - Constitutional Vitals: Temp Pulse Resp BP Pulse Ox 97.7 F 60 18 113/65 98 11/11/18 05:07 11/11/18 05:07 11/11/18 05:07 11/11/18 05:07 11/11/18 05:07 General appearance: Present: no acute distress, well-nourished - EENT Eyes: Present: PERRL, EOM intact - Neck Neck: Present: supple, normal ROM - Respiratory Respiratory effort: normal Respiratory: bilateral: diminished, negative: rales, rhonchi, wheezing - Cardiovascular Rhythm: regular Heart Sounds: Present: S1 & S2 - Extremities Extremities: no ischemia, No edema - Abdominal General gastrointestinal: soft, non-tender, non-distended, normal bowel sounds - Integumentary Integumentary: Present: clear, warm - Psychiatric Psychiatric: appropriate mood/affect, cooperative - Neurologic Neurologic: CNII-XII intact, moves all extremities Results - Labs CBC & Chem 7: 11/10/18 04:17 11/11/18 03:42 Labs: Laboratory Last Values WBC 6.6 K/mm3 (4.5-11.0) 11/10/18 04:17 RBC 3.03 M/mm3 (3.65-5.03) L 11/10/18 04:17 Hgb 10.5 gm/dl (10.1-14.3) 11/10/18 04:17 Hct 29.8 % (30.3-42.9) L 11/10/18 04:17 MCV 99 fl (79-97) H 11/10/18 04:17 MCH 35 pg (28-32) H 11/10/18 04:17 MCHC 35 % (30-34) H 11/10/18 04:17 RDW 13.2 % (13.2-15.2) 11/10/18 04:17 Plt Count 253 K/mm3 (140-440) 11/10/18 04:17 Lymph % (Auto) 24.3 % (13.4-35.0) 11/10/18 04:17 [place] % (Auto) 8.9 % (0.0-7.3) H 11/10/18 04:17 Eos % (Auto) 0.9 % (0.0-4.3) 11/10/18 04:17 Baso % (Auto) 0.4 % (0.0-1.8) 11/10/18 04:17 Lymph # 1.6 K/mm3 (1.2-5.4) 11/10/18 04:17 [place] # 0.6 K/mm3 (0.0-0.8) 11/10/18 04:17 Eos # 0.1 K/mm3 (0.0-0.4) 11/10/18 04:17 Baso # 0.0 K/mm3 (0.0-0.1) 11/10/18 04:17 Seg Neutrophils % 65.5 % (40.0-70.0) 11/10/18 04:17 Seg Neutrophils # 4.3 K/mm3 (1.8-7.7) 11/10/18 04:17 Sodium 131 mmol/L (137-145) L 11/11/18 03:42 Potassium 3.6 mmol/L (3.6-5.0) 11/11/18 03:42 Chloride 92.2 mmol/L (98-107) L 11/11/18 03:42 Carbon Dioxide 26 mmol/L (22-30) 11/11/18 03:42 16 mmol/L 11/11/18 03:42 BUN 53 mg/dL (7-17) H 11/11/18 03:42 1.3 mg/dL (0.7-1.2) H 11/11/18 03:42 Estimated GFR 47 ml/min 11/11/18 03:42 41 % 11/11/18 03:42 Glucose 140 mg/dL (65-100) H 11/11/18 03:42 POC Glucose 167 (70-105) H 11/11/18 07:21 6.2 % (4-6) H 11/11/18 03:42 285 Mosm/kg 11/09/18 19:35 Calcium 9.7 mg/dL (8.4-10.2) 11/11/18 03:42 1.10 mg/dL (0.1-1.2) 11/09/18 15:44 0.3 mg/dL (0-0.2) H 11/09/18 15:44 0.8 mg/dL 11/09/18 15:44 AST 26 units/L (5-40) 11/09/18 15:44 ALT 13 units/L (7-56) 11/09/18 15:44 59 units/L (35-129) 11/09/18 15:44 286 units/L (30-135) H 11/10/18 04:17 CK-MB (CK-2) 7.4 ng/mL (0.0-4.0) H 11/10/18 04:17 CK-MB (CK-2) Rel Index 2.5 (0-4) 11/10/18 04:17 0.049 ng/mL (0.00-0.029) H 11/10/18 04:17 NT-Pro-B Natriuret Pep 1013 pg/mL (0-900) H 11/09/18 15:44 7.8 g/dL (6.3-8.2) 11/09/18 15:44 4.2 g/dL (3.9-5) 11/09/18 15:44 1.2 % 11/09/18 15:44 Triglycerides 57 mg/dL (2-149) 11/09/18 14:55 Cholesterol 208 mg/dL (50-199) H 11/09/18 14:55 126 mg/dL (50-130) 11/09/18 14:55 93 mg/dL (40-59) H 11/09/18 14:55 2.23 % 11/09/18 14:55 Yellow (Yellow) 11/10/18 04:18 Clear (Clear) 11/10/18 04:18 7.0 (5.0-7.0) 11/10/18 04:18 Ur Specific [place] 1.008 (1.003-1.030) 11/10/18 04:18 <15 mg/dl mg/dL (Negative) 11/10/18 04:18 Neg mg/dL (Negative) 11/10/18 04:18 Neg mg/dL (Negative) 11/10/18 04:18 Neg (Negative) 11/10/18 04:18 Neg (Negative) 11/10/18 04:18 Neg (Negative) 11/10/18 04:18 < 2.0 mg/dL (<2.0) 11/10/18 04:18 Ur Leukocyte Esterase Mod (Negative) 11/10/18 04:18 1.0 /HPF (0.0-6.0) 11/10/18 04:18 1.0 /HPF (0.0-6.0) 11/10/18 04:18 U Epithel Cells (Auto) 1.0 /HPF (0-13.0) 11/10/18 04:18 Few /HPF 11/10/18 04:18 276 Mosm/kg 11/10/18 04:18 57 mmol/L 11/10/18 04:18 47.4 mmolL (110-250) L 11/10/18 04:18 Active Medications - Current Medications Current Medications: Generic Name Dose Route Start Last Admin Trade Name Freq PRN Reason Stop Dose Admin Acetaminophen 650 mg 11/09/18 22:20 Tylenol PO Q4H PRN Pain MILD(1-3)/Fever >100.5/HOPE Aspirin 81 mg 11/11/18 10:00 Halfprin Ec PO QDAY RUBY Dextrose 50 ml 11/09/18 22:57 D50w (25gm) Syringe IV PRN PRN Hypoglycemia Enoxaparin Sodium 30 mg 11/10/18 10:00 11/10/18 09:32 Lovenox SUB-Q 30 mg QDAY RUBY Administration Sodium Chloride 1,000 mls @ 75 mls/hr 11/09/18 23:00 11/11/18 03:09 Nacl 0.9% 1000 Ml IV 75 mls/hr DIRECT RUBY Administration Insulin Human Lispro 0 unit 11/10/18 07:30 11/10/18 21:58 Humalog SUB-Q Not Given ACHS [facility] Protocol Metoprolol Tartrate 25 mg 11/10/18 10:00 11/10/18 21:57 Lopressor PO 25 mg BID RUBY Administration Ondansetron HCl 4 mg 11/09/18 22:20 Zofran IV Q8H PRN Nausea And Vomiting Sodium Chloride 10 ml 11/10/18 10:00 11/10/18 21:58 Sodium Chloride Flush Syringe 10 Ml IV 10 ml BID RUBY Administration Sodium Chloride 10 ml 11/09/18 22:20 Sodium Chloride Flush Syringe 10 Ml IV PRN PRN LINE FLUSH Nutrition/Malnutrition Assess - Dietary Evaluation Nutrition/Malnutrition Findings: Nutrition Notes Start: 11/10/18 16:52 Freq: Status: Active Protocol: Document 11/10/18 16:52 RM (Rec: 11/10/18 17:01 RM [id number]) Nutrition Notes Need for Assessment generated from: MST Initial or Follow up Assessment Current Diagnosis Acute Kidney Injury,Diabetes, Hypertension Other Pertinent Diagnosis LE edema Current Diet Cardiac/Consistent CHO Labs/Tests Reviewed Pertinent Medications Reviewed Height 5 ft 8 in Weight 71.67 kg Usual Body Weight 75 kg [place] Body Weight (kg) 63.63 BMI 24.0 Weight change and time frame 4.44% wt loss X 1 week Subjective/Other Information Screened for malnutrition. Cardic diet in place earlier today. Cardiac/Consistent CHO ordered later today. 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 Denied vomiting here. Stated that her appetite is improving and that she ate most of her breakfast. Stated UBW was 165 lbs 1 week ago. Noted temporal and orbital wasting. Percent of energy/protein needs met: 100%/72% Burn Absent Trauma Absent Minimum of two criteria Yes Interpretation of Weight Loss (non- 1-2% in 1 week severe) Interpretation of Weight Loss (severe) >2% in 1 week Body Fat Depletion Mild depletion (non-severe) Muscle Mass Mild Depletion (non-severe) #1 Nutrition Diagnosis Malnutrition Etiology decreased appetite, N/V As Evidenced by Signs and Symptoms 4.44% wt loss X 1 week, temporal wasting, orbital wasting Is patient on ventilator? No Is Patient Ambulatory and/or Out of Bed No REE-([facility]-confined to bed) 7445.083 Calculation Used for Recommendations [facility] Additional Notes Protein Needs: 86-108g (1.2-1. 5g/kg) Fluid Needs: 1 ml/kcal Nutrition Intervention Change Diet Order: Continue current Add Supplement/Snack (indicate name/kcal Glucerna [place], Vanilla 1 /protein ) daily Provides kCal: 220 Provides Protein (gm) 10 Goal #1 Meet at least 75% of calorie and protein needs via PO and ONS intakes Anticipated Discharge Needs: Cardiac/Consistent CHO diet Follow-Up By: 11/12/18 Additional Comments Follow for PO and ONS intakes
[2018-11-11] MEDS: SODIUM CHLORIDE FLUSH SYRINGE 10 ML IV SCH ×2 (10:10→21:17)
[2018-11-11] MEDS: LOVENOX SUB-Q SCH (10:10)
[2018-11-11] MEDS: HALFPRIN EC PO SCH (10:10)
[2018-11-11] MEDS: HumaLOG SUB-Q SCH ×4 (10:10→21:23)
[2018-11-11] MEDS: LOPRESSOR PO SCH ×2 (10:10→23:00)
--- NOTE | 2018-11-11 11:42 | Progress Note ---
Assessment and Plan She will benefit from long-term oral anticoagulation if there are no contraindications. H&H should be repeated to see if this is dropping further. - Patient Problems (1) Status post fall Current Visit: Yes Status: Acute (2) Generalized weakness Current Visit: Yes Status: Acute (3) ALEAH (acute kidney injury) Current Visit: Yes Status: Acute (4) Paroxysmal atrial fibrillation Current Visit: Yes Status: Chronic (5) H/O cardiac radiofrequency ablation Current Visit: Yes Status: Chronic (6) Dehydration Current Visit: Yes Status: Acute (7) Hyponatremia Current Visit: Yes Status: Acute (8) Diabetes mellitus Current Visit: Yes Status: Chronic Qualifiers: Diabetes mellitus type: type 2 Subjective Date of service: 11/11/18 Principal diagnosis: s/p fall, PAF, ALEAH, Dehydration, h/o ablation Interval history: No complaint. In SR/mild sinus tachycardia with frequent PACs and PAF. Objective Vital Signs Temp Pulse Pulse Resp BP BP Pulse Ox 11/11/18 10:00 73 11/11/18 07:26 97.7 F 64 16 106/60 96 11/11/18 05:07 97.7 F 60 18 113/65 98 11/11/18 00:00 56 L 18 97/56 96 11/10/18 23:50 98.0 F 18 90/54 11/10/18 22:15 73 18 96 11/10/18 22:00 96 11/10/18 21:57 73 110/59 11/10/18 20:26 98.0 F 73 18 110/59 96 11/10/18 19:24 73 11/10/18 12:14 97.6 F 61 18 105/53 75 L - Physical Examination General: No Apparent Distress HEENT: Positive: EOMI, Normocephaly, Mucus Membranes Moist Neck: Positive: neck supple, trachea midline Cardiac: Positive: Reg Rate and Rhythm, S1/S2 Lungs: Positive: clear to auscultation Neuro: Positive: Grossly Intact Abdomen: Positive: Soft, Active Bowel Sounds. Negative: Tender Skin: Positive: Clear. Negative: Rash Musculoskeletal: Normal Range of Motion Extremities: Present: normal. Absent: edema - Labs and Meds Comprehensive Metabolic Panel 11/11/18 Range/Units 03:42 Sodium 131 L (137-145) mmol/L Potassium 3.6 (3.6-5.0) mmol/L Chloride 92.2 L (98-107) mmol/L Carbon Dioxide 26 (22-30) mmol/L BUN 53 H (7-17) mg/dL Creatinine 1.3 H (0.7-1.2) mg/dL Glucose 140 H (65-100) mg/dL Calcium 9.7 (8.4-10.2) mg/dL - Imaging and Cardiology EKG: image reviewed - EKG Sinus rhythms and dysrhythmias: sinus rhythm Supraventricular dysrhythmia: atrial premature complexe, atrial fibrillation
[2018-11-11] MEDS: ELIQUIS PO SCH (21:17)
[2018-11-12 04:59] LABS: Basophils % (Auto) 0.3 % (0.0-1.8); Eosinophils # (Auto) 0.1 K/mm3 (0.0-0.4); Eosinophils % (Auto) 1.9 % (0.0-4.3); Hematocrit 28.5 % (30.3-42.9); Hemoglobin 9.9 gm/dl (10.1-14.3); Lymphocytes # (Auto) 1.9 K/mm3 (1.2-5.4); Lymphocytes % (Auto) 27.6 % (13.4-35.0); Mean Corpuscular HGB Conc 35 % (30-34); Mean Corpuscular Hemoglobin 35 pg (28-32); Mean Corpuscular Volume 101 fl (79-97); Monocytes # (Auto) 0.6 K/mm3 (0.0-0.8); Platelet Count 220 K/mm3 (140-440); Red Blood Count 2.82 M/mm3 (3.65-5.03); Red Cell Distribution Width 13.4 % (13.2-15.2)
[2018-11-12 05:42] LABS: Calcium 9.5 mg/dL (8.4-10.2)
[2018-11-12] MEDS: NACL 0.9% 1000 ML 1,000 ML IV SCH (06:15)
[2018-11-12] MEDS: HumaLOG SUB-Q SCH ×4 (07:30→21:29)
[2018-11-12] MEDS: LOPRESSOR PO SCH ×2 (09:15→21:34)
[2018-11-12] MEDS: HALFPRIN EC PO SCH (09:15)
[2018-11-12] MEDS: ELIQUIS PO SCH ×2 (09:15→21:30)
[2018-11-12] MEDS: SODIUM CHLORIDE FLUSH SYRINGE 10 ML IV SCH ×2 (09:16→21:34)
--- NOTE | 2018-11-12 09:25 | Progress Note ---
Subjective Principal diagnosis: s/p fall, PAF, ALEAH, Dehydration, h/o ablation Interval history: Patient was seen today for follow-up of multiple renal related issues No complaints of any chest pain pressure or shortness of breath no headache no vision blurred vision Events of 24 hours vitals labs intake output medications were reviewed Past medical history: Reviewed Family history: Reviewed Social history: Reviewed Allergies: Reviewed Physical examination: Vitals: Reviewed HEENT: No pallor or icterus oral mucosa moist Neck: Supple no JVD no thyromegaly Chest: Bilateral clear to auscultation anteriorly Heart: Regular rate and rhythm S1-S2 heard no S3-S4 Abdomen: Soft nontender no voluntary guarding rigidity rebound Extremity: Dry skin less than 1+ peripheral edema Psychiatric: No evidence of agitation and aggression noted Dermatology: No petechial rashes Labs and x-rays: Reviewed from today Assessment and plan acute kidney injury patient mostly appeared to be prerenal/ no evidence of any acute tubular necrosis She is doing well as far as kidney function is concerned it has improved markedly Avoid excessive use of diuretics Chronic edema patient was advised to use diuretics with caution, avoid hyd rochlorothiazide altogether Monitor sodium and fluid intake Hyponatremia this was mostly from hydrochlorothiazide and is improving Overall patient is doing much better from renal standpoint We'll continue to follow and make recommendation for renal standpointk, Objective - Vital Signs Vital signs: Vital Signs - 12hr 11/11/18 11/12/18 23:42 00:00 Temperature 97.8 F Pulse Rate 67 94 H Respiratory 14 Rate Blood Pressure 106/63 O2 Sat by Pulse 100 Oximetry - Lab 11/12/18 04:35 11/12/18 04:35 Most recent lab results Calcium 9.5 mg/dL (8.4-10.2) 11/12/18 04:35 57 mmol/L 11/10/18 04:18 Medications & Allergies - Medications Allergies/Adverse Reactions: Allergies No Known Allergies Allergy (Unverified 11/09/18 14:45) Home Medications: Home Medications Medication Instructions Recorded Confirmed Last Taken Type Furosemide [Lasix TAB] 40 mg PO DAILY 11/09/18 11/09/18 Unknown History Losartan/Hydrochlorothiazide 1 each PO DAILY 11/09/18 11/09/18 Unknown History [Losartan-Hctz 100-25 mg Tab] Metoprolol [Lopressor] 25 mg PO BID 11/09/18 11/09/18 Unknown History metFORMIN [Glucophage] 500 mg PO BID 11/09/18 11/09/18 Unknown History Active Medications: Generic Name Dose Route Start Last Admin Trade Name [place] PRN Reason Stop Dose Admin Acetaminophen 650 mg 11/09/18 22:20 Tylenol PO Q4H PRN Pain MILD(1-3)/Fever >100.5/HOPE Apixaban 5 mg 11/11/18 22:00 11/12/18 09:15 Eliquis PO 5 mg Q12HR RUBY Administration Protocol Aspirin 81 mg 11/11/18 10:00 11/12/18 09:15 Halfprin Ec PO 81 mg QDAY RUBY Administration Dextrose 50 ml 11/09/18 22:57 D50w (25gm) Syringe IV PRN PRN Hypoglycemia Sodium Chloride 1,000 mls @ 75 mls/hr 11/09/18 23:00 11/12/18 06:15 Nacl 0.9% 1000 Ml IV 75 mls/hr DIRECT RUBY Administration Insulin Human Lispro 0 unit 11/10/18 07:30 11/12/18 07:30 Humalog SUB-Q Not Given ACHS RUBY Protocol Metoprolol Tartrate 25 mg 11/10/18 10:00 11/12/18 09:15 Lopressor PO 25 mg BID RUBY Administration Ondansetron HCl 4 mg 11/09/18 22:20 Zofran IV Q8H PRN Nausea And Vomiting Sodium Chloride 10 ml 11/10/18 10:00 11/12/18 09:16 Sodium Chloride Flush Syringe 10 Ml IV 10 ml BID RUBY Administration Sodium Chloride 10 ml 11/09/18 22:20 Sodium Chloride Flush Syringe 10 Ml IV PRN PRN LINE FLUSH
--- NOTE | 2018-11-12 11:40 | Progress Note ---
Assessment and Plan Due to atrial arrhythmias and low normal BPs, I will add digoxin to her regimen. If her rhythm is stable by tomorrow morning, she may be discharged home from a cardiac standpoint. - Patient Problems (1) Status post fall Current Visit: Yes Status: Acute (2) Generalized weakness Current Visit: Yes Status: Acute (3) ALEAH (acute kidney injury) Current Visit: Yes Status: Acute (4) Paroxysmal atrial fibrillation Current Visit: Yes Status: Chronic (5) H/O cardiac radiofrequency ablation Current Visit: Yes Status: Chronic (6) PAT (paroxysmal atrial tachycardia) Current Visit: Yes Status: Acute (7) Dehydration Current Visit: Yes Status: Resolved (8) Hyponatremia Current Visit: Yes Status: Acute (9) Diabetes mellitus Current Visit: Yes Status: Chronic Qualifiers: Diabetes mellitus type: type 2 Subjective Date of service: 11/12/18 Principal diagnosis: s/p fall, PAF, ALEAH, Dehydration, h/o ablation Interval history: No complaint. However, on the monitor, this morning she has demonstrated periods of sinus tachycardia with frequent PACs and brief atrial runs. Objective Vital Signs Last Vital Signs Temp 97.8 F 11/11/18 23:42 Pulse 94 H 11/12/18 00:00 Resp 14 11/11/18 23:42 BP 106/63 11/11/18 23:42 Pulse Ox 100 11/11/18 23:42 - Physical Examination General: No Apparent Distress HEENT: Positive: EOMI, Normocephaly, Mucus Membranes Moist Neck: Positive: neck supple, trachea midline Cardiac: Positive: Reg Rate and Rhythm, S1/S2 Lungs: Positive: clear to auscultation Neuro: Positive: Grossly Intact Abdomen: Positive: Soft, Active Bowel Sounds. Negative: Tender Skin: Positive: Clear. Negative: Rash Musculoskeletal: Normal Range of Motion Extremities: Present: normal. Absent: edema - Labs and Meds CBC 11/12/18 Range/Units 04:35 WBC 7.0 (4.5-11.0) K/mm3 RBC 2.82 L (3.65-5.03) M/mm3 Hgb 9.9 L (10.1-14.3) gm/dl Hct 28.5 L (30.3-42.9) % Plt Count 220 (140-440) K/mm3 Lymph # 1.9 (1.2-5.4) K/mm3 [place] # 0.6 (0.0-0.8) K/mm3 Eos # 0.1 (0.0-0.4) K/mm3 Baso # 0.0 (0.0-0.1) K/mm3 Comprehensive Metabolic Panel 11/12/18 Range/Units 04:35 Sodium 135 L (137-145) mmol/L Potassium 3.7 (3.6-5.0) mmol/L Chloride 98.8 (98-107) mmol/L Carbon Dioxide 24 (22-30) mmol/L BUN 33 H (7-17) mg/dL Creatinine 1.1 (0.7-1.2) mg/dL Glucose 129 H (65-100) mg/dL Calcium 9.5 (8.4-10.2) mg/dL - Imaging and Cardiology EKG: image reviewed - Telemetry EKG Rhythm: Sinus Tachycardia - EKG Sinus rhythms and dysrhythmias: sinus rhythm Supraventricular dysrhythmia: atrial premature complexe, ectopic atrial tachycardi
[2018-11-12] MEDS: LANOXIN PO SCH ×2 (13:32→21:31)
--- NOTE | 2018-11-12 18:23 | Progress Note ---
Assessment and Plan Assessment and plan: --History of paroxysmal A. fib; with rapid ventricular rate Cardiology started digoxin , continue metoprolol and Eliquis Chronic anticoagulation with Eliquis. patient has history of ablation in the past, cardiology following --History of fall; fall precautions, orthostatics, physical therapy occupational therapy,Supportive care Patient is on chronic anticoagulation. Eliquis, strongly advised family to be cautious and prevent falls --Acute renal failure; secondary to vasomotor nephropathy monitor renal function, avoid nephrotoxins, creatinine levels normal range --Hyponatremia; mild improvement , Closely monitor electrolytes --Non specificelevation troponin ; cardiology following,EF 50-55% --Hypertension: Good control, continue current antihypertensives and when necessary medications --2Diabetes; Accu-Chek sliding scale coverage and ADA diet and insulin as needed Check hemoglobin A1c 6.2 --DVT prophylaxis:Eliquis Monitor closely and adjust management as needed Possible discharge in 1-2 days if patient is stable cardiac-[place]. Plan of care is reviewed with the patient, daughter at the bedside And her nurse History Interval history: Patient seen and examined medical records reviewed Patient remains in A. fib with rapid ventricular rate Patient complains of generalized weakness Anxious to go home Cardiology started digoxin today Vital signs reviewed Hospitalist Physical - Constitutional Vitals: Temp Pulse Resp BP Pulse Ox 98.0 F 100 H 16 100/68 99 11/12/18 14:53 11/12/18 14:53 11/12/18 14:53 11/12/18 14:53 11/12/18 14:53 General appearance: Present: no acute distress, well-nourished - EENT Eyes: Present: PERRL, EOM intact - Neck Neck: Present: supple, normal ROM - Respiratory Respiratory effort: normal Respiratory: bilateral: diminished, negative: rales, rhonchi, wheezing - Cardiovascular Rhythm: regular Heart Sounds: Present: S1 & S2 - Extremities Extremities: no ischemia, No edema - Abdominal General gastrointestinal: soft, non-tender, non-distended, normal bowel sounds - Integumentary Integumentary: Present: clear, warm - Psychiatric Psychiatric: appropriate mood/affect, cooperative - Neurologic Neurologic: moves all extremities Results - Labs CBC & Chem 7: 11/12/18 04:35 11/12/18 04:35 Labs: Laboratory Last Values WBC 7.0 K/mm3 (4.5-11.0) 11/12/18 04:35 RBC 2.82 M/mm3 (3.65-5.03) L 11/12/18 04:35 Hgb 9.9 gm/dl (10.1-14.3) L 11/12/18 04:35 Hct 28.5 % (30.3-42.9) L 11/12/18 04:35 MCV 101 fl (79-97) H 11/12/18 04:35 MCH 35 pg (28-32) H 11/12/18 04:35 MCHC 35 % (30-34) H 11/12/18 04:35 RDW 13.4 % (13.2-15.2) 11/12/18 04:35 Plt Count 220 K/mm3 (140-440) 11/12/18 04:35 Lymph % (Auto) 27.6 % (13.4-35.0) 11/12/18 04:35 [place] % (Auto) 8.0 % (0.0-7.3) H 11/12/18 04:35 Eos % (Auto) 1.9 % (0.0-4.3) 11/12/18 04:35 Baso % (Auto) 0.3 % (0.0-1.8) 11/12/18 04:35 Lymph # 1.9 K/mm3 (1.2-5.4) 11/12/18 04:35 [place] # 0.6 K/mm3 (0.0-0.8) 11/12/18 04:35 Eos # 0.1 K/mm3 (0.0-0.4) 11/12/18 04:35 Baso # 0.0 K/mm3 (0.0-0.1) 11/12/18 04:35 Seg Neutrophils % 62.2 % (40.0-70.0) 11/12/18 04:35 Seg Neutrophils # 4.3 K/mm3 (1.8-7.7) 11/12/18 04:35 Sodium 135 mmol/L (137-145) L 11/12/18 04:35 Potassium 3.7 mmol/L (3.6-5.0) 11/12/18 04:35 Chloride 98.8 mmol/L (98-107) 11/12/18 04:35 Carbon Dioxide 24 mmol/L (22-30) 11/12/18 04:35 16 mmol/L 11/12/18 04:35 BUN 33 mg/dL (7-17) H 11/12/18 04:35 1.1 mg/dL (0.7-1.2) 11/12/18 04:35 Estimated GFR 57 ml/min 11/12/18 04:35 30 % 11/12/18 04:35 Glucose 129 mg/dL (65-100) H 11/12/18 04:35 POC Glucose 179 (70-105) H 11/12/18 17:43 6.2 % (4-6) H 11/11/18 03:42 285 Mosm/kg 11/09/18 19:35 Calcium 9.5 mg/dL (8.4-10.2) 11/12/18 04:35 1.10 mg/dL (0.1-1.2) 11/09/18 15:44 0.3 mg/dL (0-0.2) H 11/09/18 15:44 0.8 mg/dL 11/09/18 15:44 AST 26 units/L (5-40) 11/09/18 15:44 ALT 13 units/L (7-56) 11/09/18 15:44 59 units/L (35-129) 11/09/18 15:44 286 units/L (30-135) H 11/10/18 04:17 CK-MB (CK-2) 7.4 ng/mL (0.0-4.0) H 11/10/18 04:17 CK-MB (CK-2) Rel Index 2.5 (0-4) 11/10/18 04:17 0.049 ng/mL (0.00-0.029) H 11/10/18 04:17 NT-Pro-B Natriuret Pep 1013 pg/mL (0-900) H 11/09/18 15:44 7.8 g/dL (6.3-8.2) 11/09/18 15:44 4.2 g/dL (3.9-5) 11/09/18 15:44 1.2 % 11/09/18 15:44 Triglycerides 57 mg/dL (2-149) 11/09/18 14:55 Cholesterol 208 mg/dL (50-199) H 11/09/18 14:55 126 mg/dL (50-130) 11/09/18 14:55 93 mg/dL (40-59) H 11/09/18 14:55 2.23 % 11/09/18 14:55 Yellow (Yellow) 11/10/18 04:18 Clear (Clear) 11/10/18 04:18 7.0 (5.0-7.0) 11/10/18 04:18 Ur Specific [place] 1.008 (1.003-1.030) 11/10/18 04:18 <15 mg/dl mg/dL (Negative) 11/10/18 04:18 Neg mg/dL (Negative) 11/10/18 04:18 Neg mg/dL (Negative) 11/10/18 04:18 Neg (Negative) 11/10/18 04:18 Neg (Negative) 11/10/18 04:18 Neg (Negative) 11/10/18 04:18 < 2.0 mg/dL (<2.0) 11/10/18 04:18 Ur Leukocyte Esterase Mod (Negative) 11/10/18 04:18 1.0 /HPF (0.0-6.0) 11/10/18 04:18 1.0 /HPF (0.0-6.0) 11/10/18 04:18 U Epithel Cells (Auto) 1.0 /HPF (0-13.0) 11/10/18 04:18 Few /HPF 11/10/18 04:18 276 Mosm/kg 11/10/18 04:18 57 mmol/L 11/10/18 04:18 47.4 mmolL (110-250) L 11/10/18 04:18 Active Medications - Current Medications Current Medications: Generic Name Dose Route Start Last Admin Trade Name Freq PRN Reason Stop Dose Admin Acetaminophen 650 mg 11/09/18 22:20 Tylenol PO Q4H PRN Pain MILD(1-3)/Fever >100.5/HOPE Apixaban 5 mg 11/11/18 22:00 11/12/18 09:15 Eliquis PO 5 mg Q12HR RUBY Administration Protocol Aspirin 81 mg 11/11/18 10:00 11/12/18 09:15 Halfprin Ec PO 81 mg QDAY RUBY Administration Dextrose 50 ml 11/09/18 22:57 D50w (25gm) Syringe IV PRN PRN Hypoglycemia Digoxin 0.25 mg 11/12/18 13:00 11/12/18 13:32 Lanoxin PO 11/13/18 01:01 0.25 mg Q6H RUBY Administration Sodium Chloride 1,000 mls @ 75 mls/hr 11/09/18 23:00 11/12/18 06:15 Nacl 0.9% 1000 Ml IV 75 mls/hr DIRECT RUBY Administration Insulin Human Lispro 0 unit 11/10/18 07:30 11/12/18 17:48 Humalog SUB-Q 1 unit ACHS RUBY Administration Protocol Metoprolol Tartrate 25 mg 11/10/18 10:00 11/12/18 09:15 Lopressor PO 25 mg BID RUBY Administration Ondansetron HCl 4 mg 11/09/18 22:20 Zofran IV Q8H PRN Nausea And Vomiting Sodium Chloride 10 ml 11/10/18 10:00 11/12/18 09:16 Sodium Chloride Flush Syringe 10 Ml IV 10 ml BID RUBY Administration Sodium Chloride 10 ml 11/09/18 22:20 Sodium Chloride Flush Syringe 10 Ml IV PRN PRN LINE FLUSH Nutrition/Malnutrition Assess - Dietary Evaluation Nutrition/Malnutrition Findings: Nutrition Notes Start: 11/10/18 16:52 Freq: Status: Active Protocol: Document 11/12/18 17:48 RM (Rec: 11/12/18 17:54 RM [id number]) Nutrition Notes Initial or Follow up Reassessment Current Diagnosis Acute Kidney Injury,Diabetes, Hypertension Other Pertinent Diagnosis LE edema Current Diet Cardiac/Consistent CHO Labs/Tests Reviewed Pertinent Medications Reviewed Height 5 ft 8 in Weight 74.6 kg [place] Body Weight (kg) 63.63 BMI 25.0 Subjective/Other Information Pt stated that her appetite is good and that she eats 50% of her meals. Also stated that she is drinking the Glucerna. Pt declined increasing Glucerna frequency. Percent of energy/protein needs met: 81%/60% Burn Absent Trauma Absent #1 Nutrition Diagnosis Malnutrition Diagnosis Progress(for reassessment Continues documentation) Is patient on ventilator? No Is Patient Ambulatory and/or Out of Bed No REE-([facility]-confined to bed) [phone] Calculation Used for Recommendations Desiree Camarena Additional Notes Protein Needs: 86-108g (1.2-1. 5g/kg) Fluid Needs: 1 ml/kcal Nutrition Intervention Change Diet Order: Continue current Add Supplement/Snack (indicate name/kcal Glucerna [place], Vanilla 1 /protein ) daily Provides kCal: 220 Provides Protein (gm) 10 Goal #1 Meet at least 75% of calorie and protein needs via PO and ONS intakes Anticipated Discharge Needs: Cardiac/Consistent CHO diet Follow-Up By: 11/17/18 Additional Comments Follow for PO and ONS intakes
[2018-11-13] MEDS: LANOXIN PO SCH (01:15)
[2018-11-13] MEDS: NACL 0.9% 1000 ML 1,000 ML IV SCH (05:59)
[2018-11-13] MEDS: HumaLOG SUB-Q SCH ×4 (08:28→21:41)
[2018-11-13] MEDS: LOPRESSOR PO SCH ×2 (09:15→21:41)
[2018-11-13] MEDS: ELIQUIS PO SCH ×2 (09:15→21:41)
[2018-11-13] MEDS: HALFPRIN EC PO SCH (09:15)
--- NOTE | 2018-11-13 09:16 | Progress Note ---
Assessment and Plan Assessment and plan: --Digoxin toxicity; cardiology started digoxin loading dose yesterday Digoxin level is supratherapeutic, hold digoxin, monitor levels Adjust the dose, cardiology following --History of paroxysmal A. fib; with rapid ventricular rate Continue digoxin and metoprolol, rate controlled Chronic anticoagulation with Eliquis. patient has history of ablation in the past. --History of fall; fall precautions, orthostatics, Received physical therapy occupational therapy, recommend home PT/OT No new episodes of falls --Acute renal failure; present on admission secondary to vasomotor nephropathy Resolved ,avoid nephrotoxins, --Hyponatremia; mild improvement , Closely monitor electrolytes --Non specific elevation troponin ; cardiology following,EF 50-55% --Hypertension: Good control, continue current antihypertensives and when necessary medications --2Diabetes; Accu-Chek sliding scale coverage and ADA diet and insulin as needed Check hemoglobin A1c 6.2 --DVT prophylaxis:Eliquis Disposition; adjust digoxin levels, follow cardiology recommendations Discharge when patient is stable History Interval history: Patient seen and examined this morning medical records reviewed Reviewed telemetry, A. fib. Heart rate of 80s to 90s Patient feels better once she is to go home Cardiology started digoxin yesterday Level supratherapeutic Digoxin held Vital signs noted Hospitalist Physical - Constitutional Vitals: Temp Pulse Resp BP Pulse Ox 97.7 F 85 20 113/75 99 11/13/18 04:41 11/13/18 04:41 11/13/18 04:41 11/13/18 04:41 11/13/18 04:41 General appearance: Present: no acute distress, well-nourished - EENT Eyes: Present: PERRL, EOM intact - Neck Neck: Present: supple, normal ROM - Respiratory Respiratory effort: normal Respiratory: bilateral: diminished, negative: rales, rhonchi, wheezing - Cardiovascular Rhythm: regular Heart Sounds: Present: S1 & S2 - Extremities Extremities: no ischemia, No edema - Abdominal General gastrointestinal: soft, non-tender, non-distended, normal bowel sounds - Integumentary Integumentary: Present: clear, warm - Psychiatric Psychiatric: appropriate mood/affect, cooperative - Neurologic Neurologic: CNII-XII intact, moves all extremities Results - Labs CBC & Chem 7: 11/12/18 04:35 11/12/18 04:35 Labs: Laboratory Last Values WBC 7.0 K/mm3 (4.5-11.0) 11/12/18 04:35 RBC 2.82 M/mm3 (3.65-5.03) L 11/12/18 04:35 Hgb 9.9 gm/dl (10.1-14.3) L 11/12/18 04:35 Hct 28.5 % (30.3-42.9) L 11/12/18 04:35 MCV 101 fl (79-97) H 11/12/18 04:35 MCH 35 pg (28-32) H 11/12/18 04:35 MCHC 35 % (30-34) H 11/12/18 04:35 RDW 13.4 % (13.2-15.2) 11/12/18 04:35 Plt Count 220 K/mm3 (140-440) 11/12/18 04:35 Lymph % (Auto) 27.6 % (13.4-35.0) 11/12/18 04:35 [place] % (Auto) 8.0 % (0.0-7.3) H 11/12/18 04:35 Eos % (Auto) 1.9 % (0.0-4.3) 11/12/18 04:35 Baso % (Auto) 0.3 % (0.0-1.8) 11/12/18 04:35 Lymph # 1.9 K/mm3 (1.2-5.4) 11/12/18 04:35 [place] # 0.6 K/mm3 (0.0-0.8) 11/12/18 04:35 Eos # 0.1 K/mm3 (0.0-0.4) 11/12/18 04:35 Baso # 0.0 K/mm3 (0.0-0.1) 11/12/18 04:35 Seg Neutrophils % 62.2 % (40.0-70.0) 11/12/18 04:35 Seg Neutrophils # 4.3 K/mm3 (1.8-7.7) 11/12/18 04:35 Sodium 135 mmol/L (137-145) L 11/12/18 04:35 Potassium 3.7 mmol/L (3.6-5.0) 11/12/18 04:35 Chloride 98.8 mmol/L (98-107) 11/12/18 04:35 Carbon Dioxide 24 mmol/L (22-30) 11/12/18 04:35 16 mmol/L 11/12/18 04:35 BUN 33 mg/dL (7-17) H 11/12/18 04:35 1.1 mg/dL (0.7-1.2) 11/12/18 04:35 Estimated GFR 57 ml/min 11/12/18 04:35 30 % 11/12/18 04:35 Glucose 129 mg/dL (65-100) H 11/12/18 04:35 POC Glucose 137 (70-105) H 11/13/18 07:55 6.2 % (4-6) H 11/11/18 03:42 285 Mosm/kg 11/09/18 19:35 Calcium 9.5 mg/dL (8.4-10.2) 11/12/18 04:35 1.10 mg/dL (0.1-1.2) 11/09/18 15:44 0.3 mg/dL (0-0.2) H 11/09/18 15:44 0.8 mg/dL 11/09/18 15:44 AST 26 units/L (5-40) 11/09/18 15:44 ALT 13 units/L (7-56) 11/09/18 15:44 59 units/L (35-129) 11/09/18 15:44 286 units/L (30-135) H 11/10/18 04:17 CK-MB (CK-2) 7.4 ng/mL (0.0-4.0) H 11/10/18 04:17 CK-MB (CK-2) Rel Index 2.5 (0-4) 11/10/18 04:17 0.049 ng/mL (0.00-0.029) H 11/10/18 04:17 NT-Pro-B Natriuret Pep 1013 pg/mL (0-900) H 11/09/18 15:44 7.8 g/dL (6.3-8.2) 11/09/18 15:44 4.2 g/dL (3.9-5) 11/09/18 15:44 1.2 % 11/09/18 15:44 Triglycerides 57 mg/dL (2-149) 11/09/18 14:55 Cholesterol 208 mg/dL (50-199) H 11/09/18 14:55 126 mg/dL (50-130) 11/09/18 14:55 93 mg/dL (40-59) H 11/09/18 14:55 2.23 % 11/09/18 14:55 Yellow (Yellow) 11/10/18 04:18 Clear (Clear) 11/10/18 04:18 7.0 (5.0-7.0) 11/10/18 04:18 Ur Specific [place] 1.008 (1.003-1.030) 11/10/18 04:18 <15 mg/dl mg/dL (Negative) 11/10/18 04:18 Neg mg/dL (Negative) 11/10/18 04:18 Neg mg/dL (Negative) 11/10/18 04:18 Neg (Negative) 11/10/18 04:18 Neg (Negative) 11/10/18 04:18 Neg (Negative) 11/10/18 04:18 < 2.0 mg/dL (<2.0) 11/10/18 04:18 Ur Leukocyte Esterase Mod (Negative) 11/10/18 04:18 1.0 /HPF (0.0-6.0) 11/10/18 04:18 1.0 /HPF (0.0-6.0) 11/10/18 04:18 U Epithel Cells (Auto) 1.0 /HPF (0-13.0) 11/10/18 04:18 Few /HPF 11/10/18 04:18 276 Mosm/kg 11/10/18 04:18 57 mmol/L 11/10/18 04:18 47.4 mmolL (110-250) L 11/10/18 04:18 Digoxin 3.3 ng/mL (0.9-2.0) H* 11/13/18 04:31 Active Medications - Current Medications Current Medications: Generic Name Dose Route Start Last Admin Trade Name Freq PRN Reason Stop Dose Admin Acetaminophen 650 mg 11/09/18 22:20 Tylenol PO Q4H PRN Pain MILD(1-3)/Fever >100.5/HOPE Apixaban 5 mg 11/11/18 22:00 11/12/18 21:30 Eliquis PO 5 mg Q12HR RUBY Administration Protocol Aspirin 81 mg 11/11/18 10:00 11/12/18 09:15 Halfprin Ec PO 81 mg QDAY RUBY Administration Dextrose 50 ml 11/09/18 22:57 D50w (25gm) Syringe IV PRN PRN Hypoglycemia Sodium Chloride 1,000 mls @ 75 mls/hr 11/09/18 23:00 11/13/18 05:59 Nacl 0.9% 1000 Ml IV 75 mls/hr DIRECT RUBY Administration Insulin Human Lispro 0 unit 11/10/18 07:30 11/13/18 08:28 Humalog SUB-Q Not Given ACHS [facility] Protocol Metoprolol Tartrate 25 mg 11/10/18 10:00 11/12/18 21:34 Lopressor PO Not Given BID RUBY Ondansetron HCl 4 mg 11/09/18 22:20 Zofran IV Q8H PRN Nausea And Vomiting Sodium Chloride 10 ml 11/10/18 10:00 11/12/18 21:34 Sodium Chloride Flush Syringe 10 Ml IV 10 ml BID RUYB Administration Sodium Chloride 10 ml 11/09/18 22:20 Sodium Chloride Flush Syringe 10 Ml IV PRN PRN LINE FLUSH Nutrition/Malnutrition Assess - Dietary Evaluation Nutrition/Malnutrition Findings: Nutrition Notes Start: 11/10/18 16:52 Freq: Status: Active Protocol: Document 11/12/18 17:48 RM (Rec: 11/12/18 17:54 RM [id number]) Nutrition Notes Initial or Follow up Reassessment Current Diagnosis Acute Kidney Injury,Diabetes, Hypertension Other Pertinent Diagnosis LE edema Current Diet Cardiac/Consistent CHO Labs/Tests Reviewed Pertinent Medications Reviewed Height 5 ft 8 in Weight 74.6 kg [place] Body Weight (kg) 63.63 BMI 25.0 Subjective/Other Information Pt stated that her appetite is good and that she eats 50% of her meals. Also stated that she is drinking the Glucerna. Pt declined increasing Glucerna frequency. Percent of energy/protein needs met: 81%/60% Burn Absent Trauma Absent #1 Nutrition Diagnosis Malnutrition Diagnosis Progress(for reassessment Continues documentation) Is patient on ventilator? No Is Patient Ambulatory and/or Out of Bed No REE-([facility]-confined to bed) [phone] Calculation Used for Recommendations [facility] Additional Notes Protein Needs: 86-108g (1.2-1. 5g/kg) Fluid Needs: 1 ml/kcal Nutrition Intervention Change Diet Order: Continue current Add Supplement/Snack (indicate name/kcal Glucerna [place], Vanilla 1 /protein ) daily Provides kCal: 220 Provides Protein (gm) 10 Goal #1 Meet at least 75% of calorie and protein needs via PO and ONS intakes Anticipated Discharge Needs: Cardiac/Consistent CHO diet Follow-Up By: 11/17/18 Additional Comments Follow for PO and ONS intakes
[2018-11-13 10:25] LABS: Calcium 9.7 mg/dL (8.4-10.2)
--- NOTE | 2018-11-13 11:46 | Progress Note ---
Assessment and Plan DC Digoxin. Will observe on monitor today and recheck Digoxin leveli in am. May DC tomorrow if level is down. - Patient Problems (1) Elevated digoxin level Current Visit: Yes Status: Acute (2) Status post fall Current Visit: Yes Status: Acute (3) Generalized weakness Current Visit: Yes Status: Acute (4) ALEAH (acute kidney injury) Current Visit: Yes Status: Acute (5) Paroxysmal atrial fibrillation Current Visit: Yes Status: Chronic (6) H/O cardiac radiofrequency ablation Current Visit: Yes Status: Chronic (7) PAT (paroxysmal atrial tachycardia) Current Visit: Yes Status: Acute (8) Dehydration Current Visit: Yes Status: Resolved (9) Hyponatremia Current Visit: Yes Status: Acute (10) Diabetes mellitus Current Visit: Yes Status: Chronic Qualifiers: Diabetes mellitus type: type 2 Subjective Date of service: 11/13/18 Principal diagnosis: s/p fall, PAF, ALEAH, Dehydration, h/o ablation Interval history: No complaint. In AF with CVR. digoxin level is quite high despite partial loading. Objective Vital Signs Temp Pulse Resp BP BP Pulse Ox 11/13/18 07:47 98.2 F 86 14 124/72 99 11/13/18 04:41 97.7 F 85 20 113/75 99 11/13/18 04:40 97.7 F 85 11/13/18 01:15 88 11/12/18 23:30 97.9 F 11/12/18 23:29 92 H 18 112/64 100 11/12/18 23:28 80 112/64 100 11/12/18 23:00 84 11/12/18 21:34 103/69 11/12/18 21:31 103 H 11/12/18 19:46 97.6 F 11/12/18 19:43 90 18 103/69 97 11/12/18 14:53 98.0 F 100 H 16 100/68 99 - Physical Examination General: No Apparent Distress HEENT: Positive: EOMI, Normocephaly, Mucus Membranes Moist Neck: Positive: neck supple, trachea midline Cardiac: Positive: irregularly irregular, S1/S2 Lungs: Positive: clear to auscultation Neuro: Positive: Grossly Intact Abdomen: Positive: Soft, Active Bowel Sounds. Negative: Tender Skin: Positive: Clear. Negative: Rash Musculoskeletal: Normal Range of Motion Extremities: Present: normal. Absent: edema - Labs and Meds Comprehensive Metabolic Panel 11/13/18 Range/Units 09:19 Sodium 136 L (137-145) mmol/L Potassium 4.0 (3.6-5.0) mmol/L Chloride 102.4 (98-107) mmol/L Carbon Dioxide 23 (22-30) mmol/L BUN 25 H (7-17) mg/dL Creatinine 1.1 (0.7-1.2) mg/dL Glucose 149 H (65-100) mg/dL Calcium 9.7 (8.4-10.2) mg/dL - Imaging and Cardiology EKG: image reviewed - Telemetry EKG Rhythm: Atrial Fibrillation - EKG Sinus rhythms and dysrhythmias: sinus rhythm
--- NOTE | 2018-11-13 12:20 | Progress Note ---
Assessment and Plan Impression * Acute kidney injury * Hyponatremia * Hypertension * Paroxysmal atrial fibrillation * History of recent fall * Digoxin toxicity Recommendations * Patient's renal function has improved significantly. Serum creatinine has leveled off at 1.1 * Hyponatremia is also better * Her blood pressure is under control * Oral intake is adequate * Discontinue IV fluid * Shall follow her PRN Subjective Date of service: 11/13/18 Principal diagnosis: s/p fall, PAF, LAEAH, Dehydration, h/o ablation Interval history: Patient is comfortable today. Denies any shortness of breath. No nausea vomiting or diarrhea. Objective - Vital Signs Vital signs: Vital Signs - 12hr 11/13/18 11/13/18 11/13/18 01:15 04:40 04:41 Temperature 97.7 F 97.7 F Pulse Rate 88 85 85 Respiratory 20 Rate Blood Pressure Blood Pressure 113/75 [Left] O2 Sat by Pulse 99 Oximetry 11/13/18 11/13/18 07:47 10:00 Temperature 98.2 F Pulse Rate 86 100 H Respiratory 14 Rate Blood Pressure 124/72 Blood Pressure [Left] O2 Sat by Pulse 99 Oximetry - General Appearance General appearance: well-developed, well-nourished, appears stated age EENT: PERRL, mucous membranes moist Neck: no JVD, no thyromegaly, no carotid bruit, supple Respiratory: Present: Clear to Ascultation Cardiology: irregularly irregular, normal heart rate Gastrointestinal: normal, normoactive bowel sounds Integumentary: other (no edema.) - Lab 11/12/18 04:35 11/13/18 09:19 Most recent lab results Calcium 9.7 mg/dL (8.4-10.2) 11/13/18 09:19 57 mmol/L 11/10/18 04:18 Medications & Allergies - Medications Allergies/Adverse Reactions: Allergies No Known Allergies Allergy (Unverified 11/09/18 14:45) Home Medications: Home Medications Medication Instructions Recorded Confirmed Last Taken Type Furosemide [Lasix TAB] 40 mg PO DAILY 11/09/18 11/09/18 Unknown History Losartan/Hydrochlorothiazide 1 each PO DAILY 11/09/18 11/09/18 Unknown History [Losartan-Hctz 100-25 mg Tab] Metoprolol [Lopressor] 25 mg PO BID 11/09/18 11/09/18 Unknown History metFORMIN [Glucophage] 500 mg PO BID 11/09/18 11/09/18 Unknown History Active Medications: Generic Name Dose Route Start Last Admin Trade Name Freq PRN Reason Stop Dose Admin Acetaminophen 650 mg 11/09/18 22:20 Tylenol PO Q4H PRN Pain MILD(1-3)/Fever >100.5/HOPE Apixaban 5 mg 11/11/18 22:00 11/13/18 09:15 Eliquis PO 5 mg Q12HR RUBY Administration Protocol Aspirin 81 mg 11/11/18 10:00 11/13/18 09:15 Halfprin Ec PO 81 mg QDAY RUBY Administration Dextrose 50 ml 11/09/18 22:57 D50w (25gm) Syringe IV PRN PRN Hypoglycemia Sodium Chloride 1,000 mls @ 75 mls/hr 11/09/18 23:00 11/13/18 05:59 Nacl 0.9% 1000 Ml IV 75 mls/hr DIRECT RUBY Administration Insulin Human Lispro 0 unit 11/10/18 07:30 11/13/18 08:28 Humalog SUB-Q Not Given ACHS RUBY Protocol Metoprolol Tartrate 25 mg 11/10/18 10:00 11/13/18 09:15 Lopressor PO 25 mg BID RUBY Administration Ondansetron HCl 4 mg 11/09/18 22:20 Zofran IV Q8H PRN Nausea And Vomiting Sodium Chloride 10 ml 11/10/18 10:00 11/12/18 21:34 Sodium Chloride Flush Syringe 10 Ml IV 10 ml BID RUBY Administration Sodium Chloride 10 ml 11/09/18 22:20 Sodium Chloride Flush Syringe 10 Ml IV PRN PRN LINE FLUSH
[2018-11-13] MEDS: SODIUM CHLORIDE FLUSH SYRINGE 10 ML IV SCH ×2 (13:05→21:42)
[2018-11-14 05:04] LABS: BUN/Creatinine Ratio 21; Blood Urea Nitrogen 21 mg/dL (7-17); Calcium 9.5 mg/dL (8.4-10.2); Hemolysis Index 3
[2018-11-14] MEDS: HumaLOG SUB-Q SCH ×5 (08:35→21:24)
[2018-11-14] MEDS: ELIQUIS PO SCH ×2 (10:17→21:22)
[2018-11-14] MEDS: HALFPRIN EC PO SCH (10:17)
[2018-11-14] MEDS: LOPRESSOR PO SCH ×3 (10:17→21:28)
[2018-11-14] MEDS: SODIUM CHLORIDE FLUSH SYRINGE 10 ML IV SCH ×2 (10:18→21:24)
--- NOTE | 2018-11-14 10:31 | Progress Note ---
Assessment and Plan Assessment and plan: --Digoxin toxicity; cardiology started digoxin loading dose Digoxin level is supratherapeutic, digoxin held, D/W cardiology discontinue digoxin and consider increasing beta blockers or add amiodarone if needed --History of paroxysmal A. fib; rate controlled 85 this morning Sometimes has A. fib A flutter Continue metoprolol, Chronic anticoagulation with Eliquis. patient has history of ablation in the past. --History of fall; fall precautions, orthostatics, Received physical therapy occupational therapy, recommend home PT/OT No new episodes of falls --Acute renal failure; present on admission secondary to vasomotor nephropathy Resolved ,avoid nephrotoxins, --Hyponatremia; mild improvement , Closely monitor electrolytes --NSTEMI/ non specific elevation troponin ; cardiology following,EF 50-55% --Hypertension: Good control, continue current antihypertensives and when necessary medications --2Diabetes; Accu-Chek sliding scale coverage and ADA diet and insulin as needed Check hemoglobin A1c 6.2 --DVT prophylaxis:Eliquis Disposition;per cardiology Discharge when the patient is stable cardiac-[place] History Interval history: Patient seen and examined medical records reviewed Patient has no new complaints Wants to go home, unable to tolerate digoxin Cardiology planning to increase beta blockers Vital signs reviewed Hospitalist Physical - Constitutional Vitals: Temp Pulse Resp BP Pulse Ox 98.4 F 70 16 120/67 99 11/14/18 07:31 11/14/18 07:31 11/14/18 07:31 11/14/18 07:31 11/14/18 07:31 General appearance: Present: no acute distress, well-nourished - EENT Eyes: Present: PERRL, EOM intact - Neck Neck: Present: supple, normal ROM - Respiratory Respiratory effort: normal Respiratory: bilateral: diminished, negative: rales, rhonchi, wheezing - Cardiovascular Rhythm: regular Heart Sounds: Present: S1 & S2 - Extremities Extremities: no ischemia, No edema - Abdominal General gastrointestinal: soft, non-tender, non-distended, normal bowel sounds - Integumentary Integumentary: Present: clear, warm - Psychiatric Psychiatric: appropriate mood/affect, cooperative - Neurologic Neurologic: CNII-XII intact, moves all extremities Results - Labs CBC & Chem 7: 11/12/18 04:35 11/14/18 04:18 Labs: Laboratory Last Values WBC 7.0 K/mm3 (4.5-11.0) 11/12/18 04:35 RBC 2.82 M/mm3 (3.65-5.03) L 11/12/18 04:35 Hgb 9.9 gm/dl (10.1-14.3) L 11/12/18 04:35 Hct 28.5 % (30.3-42.9) L 11/12/18 04:35 MCV 101 fl (79-97) H 11/12/18 04:35 MCH 35 pg (28-32) H 11/12/18 04:35 MCHC 35 % (30-34) H 11/12/18 04:35 RDW 13.4 % (13.2-15.2) 11/12/18 04:35 Plt Count 220 K/mm3 (140-440) 11/12/18 04:35 Lymph % (Auto) 27.6 % (13.4-35.0) 11/12/18 04:35 [place] % (Auto) 8.0 % (0.0-7.3) H 11/12/18 04:35 Eos % (Auto) 1.9 % (0.0-4.3) 11/12/18 04:35 Baso % (Auto) 0.3 % (0.0-1.8) 11/12/18 04:35 Lymph # 1.9 K/mm3 (1.2-5.4) 11/12/18 04:35 [place] # 0.6 K/mm3 (0.0-0.8) 11/12/18 04:35 Eos # 0.1 K/mm3 (0.0-0.4) 11/12/18 04:35 Baso # 0.0 K/mm3 (0.0-0.1) 11/12/18 04:35 Seg Neutrophils % 62.2 % (40.0-70.0) 11/12/18 04:35 Seg Neutrophils # 4.3 K/mm3 (1.8-7.7) 11/12/18 04:35 Sodium 138 mmol/L (137-145) 11/14/18 04:18 Potassium 4.0 mmol/L (3.6-5.0) 11/14/18 04:18 Chloride 103.9 mmol/L (98-107) 11/14/18 04:18 Carbon Dioxide 23 mmol/L (22-30) 11/14/18 04:18 15 mmol/L 11/14/18 04:18 BUN 21 mg/dL (7-17) H 11/14/18 04:18 1.0 mg/dL (0.7-1.2) 11/14/18 04:18 Estimated GFR > 60 ml/min 11/14/18 04:18 21 % 11/14/18 04:18 Glucose 115 mg/dL (65-100) H 11/14/18 04:18 POC Glucose 144 (70-105) H 11/14/18 07:40 6.2 % (4-6) H 11/11/18 03:42 285 Mosm/kg 11/09/18 19:35 Calcium 9.5 mg/dL (8.4-10.2) 11/14/18 04:18 1.10 mg/dL (0.1-1.2) 11/09/18 15:44 0.3 mg/dL (0-0.2) H 11/09/18 15:44 0.8 mg/dL 11/09/18 15:44 AST 26 units/L (5-40) 11/09/18 15:44 ALT 13 units/L (7-56) 11/09/18 15:44 59 units/L (35-129) 11/09/18 15:44 286 units/L (30-135) H 11/10/18 04:17 CK-MB (CK-2) 7.4 ng/mL (0.0-4.0) H 11/10/18 04:17 CK-MB (CK-2) Rel Index 2.5 (0-4) 11/10/18 04:17 0.049 ng/mL (0.00-0.029) H 11/10/18 04:17 NT-Pro-B Natriuret Pep 1013 pg/mL (0-900) H 11/09/18 15:44 7.8 g/dL (6.3-8.2) 11/09/18 15:44 4.2 g/dL (3.9-5) 11/09/18 15:44 1.2 % 11/09/18 15:44 Triglycerides 57 mg/dL (2-149) 11/09/18 14:55 Cholesterol 208 mg/dL (50-199) H 11/09/18 14:55 126 mg/dL (50-130) 11/09/18 14:55 93 mg/dL (40-59) H 11/09/18 14:55 2.23 % 11/09/18 14:55 Yellow (Yellow) 11/10/18 04:18 Clear (Clear) 11/10/18 04:18 7.0 (5.0-7.0) 11/10/18 04:18 Ur Specific [place] 1.008 (1.003-1.030) 11/10/18 04:18 <15 mg/dl mg/dL (Negative) 11/10/18 04:18 Neg mg/dL (Negative) 11/10/18 04:18 Neg mg/dL (Negative) 11/10/18 04:18 Neg (Negative) 11/10/18 04:18 Neg (Negative) 11/10/18 04:18 Neg (Negative) 11/10/18 04:18 < 2.0 mg/dL (<2.0) 11/10/18 04:18 Ur Leukocyte Esterase Mod (Negative) 11/10/18 04:18 1.0 /HPF (0.0-6.0) 11/10/18 04:18 1.0 /HPF (0.0-6.0) 11/10/18 04:18 U Epithel Cells (Auto) 1.0 /HPF (0-13.0) 11/10/18 04:18 Few /HPF 11/10/18 04:18 276 Mosm/kg 11/10/18 04:18 57 mmol/L 11/10/18 04:18 47.4 mmolL (110-250) L 11/10/18 04:18 Digoxin 1.6 ng/mL (0.9-2.0) 11/14/18 04:18 Active Medications - Current Medications Current Medications: Generic Name Dose Route Start Last Admin Trade Name Freq PRN Reason Stop Dose Admin Acetaminophen 650 mg 11/09/18 22:20 Tylenol PO Q4H PRN Pain MILD(1-3)/Fever >100.5/HOPE Apixaban 5 mg 11/11/18 22:00 11/14/18 10:17 Eliquis PO 5 mg Q12HR RUBY Administration Protocol Aspirin 81 mg 11/11/18 10:00 11/14/18 10:17 Halfprin Ec PO 81 mg QDAY RUBY Administration Dextrose 50 ml 11/09/18 22:57 D50w (25gm) Syringe IV PRN PRN Hypoglycemia Insulin Human Lispro 0 unit 11/10/18 07:30 11/14/18 08:35 Humalog SUB-Q Not Given ACHS RUBY Protocol Metoprolol Tartrate 25 mg 11/10/18 10:00 11/13/18 21:41 Lopressor PO 25 mg BID RUBY Administration Ondansetron HCl 4 mg 11/09/18 22:20 Zofran IV Q8H PRN Nausea And Vomiting Sodium Chloride 10 ml 11/10/18 10:00 11/13/18 21:42 Sodium Chloride Flush Syringe 10 Ml IV 10 ml BID RUBY Administration Sodium Chloride 10 ml 11/09/18 22:20 Sodium Chloride Flush Syringe 10 Ml IV PRN PRN LINE FLUSH Nutrition/Malnutrition Assess - Dietary Evaluation Nutrition/Malnutrition Findings: Nutrition Notes Start: 11/10/18 16:52 Freq: Status: Active Protocol: Document 11/12/18 17:48 RM (Rec: 11/12/18 17:54 RM [email or web address]) Nutrition Notes Initial or Follow up Reassessment Current Diagnosis Acute Kidney Injury,Diabetes, Hypertension Other Pertinent Diagnosis LE edema Current Diet Cardiac/Consistent CHO Labs/Tests Reviewed Pertinent Medications Reviewed Height 5 ft 8 in Weight 74.6 kg [place] Body Weight (kg) 63.63 BMI 25.0 Subjective/Other Information Pt stated that her appetite is good and that she eats 50% of her meals. Also stated that she is drinking the Glucerna. Pt declined increasing Glucerna frequency. Percent of energy/protein needs met: 81%/60% Burn Absent Trauma Absent #1 Nutrition Diagnosis Malnutrition Diagnosis Progress(for reassessment Continues documentation) Is patient on ventilator? No Is Patient Ambulatory and/or Out of Bed No REE-([facility]-confined to bed) [phone] Calculation Used for Recommendations [facility] Additional Notes Protein Needs: 86-108g (1.2-1. 5g/kg) Fluid Needs: 1 ml/kcal Nutrition Intervention Change Diet Order: Continue current Add Supplement/Snack (indicate name/kcal Glucerna [place], Vanilla 1 /protein ) daily Provides kCal: 220 Provides Protein (gm) 10 Goal #1 Meet at least 75% of calorie and protein needs via PO and ONS intakes Anticipated Discharge Needs: Cardiac/Consistent CHO diet Follow-Up By: 11/17/18 Additional Comments Follow for PO and ONS intakes
--- NOTE | 2018-11-14 11:37 | Progress Note ---
Assessment and Plan The patient is too sensitive to Digoxin. Even with partial loading 2 days ago, level shot up very high. Will not use Digoxin in her. Will increase Metoprolol to tid. If tolerated and stable, can DC in am. - Patient Problems (1) Elevated digoxin level Current Visit: Yes Status: Acute (2) Status post fall Current Visit: Yes Status: Acute (3) Generalized weakness Current Visit: Yes Status: Acute (4) ALEAH (acute kidney injury) Current Visit: Yes Status: Acute (5) Paroxysmal atrial fibrillation Current Visit: Yes Status: Chronic (6) H/O cardiac radiofrequency ablation Current Visit: Yes Status: Chronic (7) PAT (paroxysmal atrial tachycardia) Current Visit: Yes Status: Acute (8) Dehydration Current Visit: Yes Status: Resolved (9) Hyponatremia Current Visit: Yes Status: Acute (10) Diabetes mellitus Current Visit: Yes Status: Chronic Qualifiers: Diabetes mellitus type: type 2 Subjective Date of service: 11/14/18 Principal diagnosis: s/p fall, PAF, ALEAH, Dehydration, h/o ablation Interval history: No complaint. In PAF/flutter with variable, but sometimes RVR. Objective Vital Signs Temp Pulse Resp BP Pulse Ox 11/14/18 10:17 70 120/67 11/14/18 10:00 69 11/14/18 07:31 98.4 F 70 16 120/67 99 11/14/18 03:48 98.0 F 68 18 125/70 98 11/14/18 00:16 98.0 F 66 18 119/73 99 11/13/18 23:00 85 11/13/18 19:42 98.2 F 85 18 123/68 98 11/13/18 18:26 97.5 F L 92 H 18 117/69 99 - Physical Examination General: No Apparent Distress HEENT: Positive: EOMI, Normocephaly, Mucus Membranes Moist Neck: Positive: neck supple, trachea midline Cardiac: Positive: irregularly irregular Lungs: Positive: clear to auscultation Neuro: Positive: Grossly Intact Abdomen: Positive: Soft, Active Bowel Sounds. Negative: Tender Skin: Positive: Clear. Negative: Rash Musculoskeletal: Normal Range of Motion Extremities: Present: normal. Absent: edema - Labs and Meds Comprehensive Metabolic Panel 11/14/18 Range/Units 04:18 Sodium 138 (137-145) mmol/L Potassium 4.0 (3.6-5.0) mmol/L Chloride 103.9 (98-107) mmol/L Carbon Dioxide 23 (22-30) mmol/L BUN 21 H (7-17) mg/dL Creatinine 1.0 (0.7-1.2) mg/dL Glucose 115 H (65-100) mg/dL Calcium 9.5 (8.4-10.2) mg/dL - Imaging and Cardiology EKG: image reviewed - Telemetry EKG Rhythm: Atrial Flutter
[2018-11-14] MEDS ORDERED: LANOXIN PO SCH (17:00)
[2018-11-15] MEDS: HumaLOG SUB-Q SCH ×3 (09:12→17:00)
[2018-11-15] MEDS: HALFPRIN EC PO SCH (09:23)
[2018-11-15] MEDS: ELIQUIS PO SCH (09:23)
[2018-11-15] MEDS: LOPRESSOR PO SCH ×2 (09:24→13:15)
[2018-11-15] MEDS: SODIUM CHLORIDE FLUSH SYRINGE 10 ML IV SCH (09:26)
--- NOTE | 2018-11-15 13:26 | Progress Note ---
Assessment and Plan Currently stable cardiac status. Pt may discharge home from cardiology on current cardiac regimen. 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 Pt and pt's daughter at bedside verbalize understanding. The patient has been seen in conjunction with Dr. Meadows who agrees with the assessment and plan of care. - Patient Problems (1) Elevated digoxin level Current Visit: Yes Status: Acute (2) Status post fall Current Visit: Yes Status: Acute (3) Generalized weakness Current Visit: Yes Status: Acute (4) ALEAH (acute kidney injury) Current Visit: Yes Status: Acute (5) Paroxysmal atrial fibrillation Current Visit: Yes Status: Chronic (6) H/O cardiac radiofrequency ablation Current Visit: Yes Status: Chronic (7) PAT (paroxysmal atrial tachycardia) Current Visit: Yes Status: Acute (8) Dehydration Current Visit: Yes Status: Resolved (9) Hyponatremia Current Visit: Yes Status: Acute (10) Diabetes mellitus Current Visit: Yes Status: Chronic Qualifiers: Diabetes mellitus type: type 2 Subjective Date of service: 11/15/18 Principal diagnosis: s/p fall, PAF, ALEAH, Dehydration, h/o ablation Interval history: pt resting in bed, no current cardiac complaints, daughter at bedside. tele reviewed - in AFib with HR 70s, a bout of RVR HR 160s noted this AM while pt was ambulating around her room. Objective Last Vital Signs Temp 98.6 F 11/15/18 12:07 Pulse 69 11/15/18 13:15 Resp 18 11/15/18 12:07 BP 112/63 11/15/18 13:15 Pulse Ox 97 11/15/18 12:07 - Physical Examination General: No Apparent Distress HEENT: Positive: EOMI, Normocephaly, Mucus Membranes Moist Neck: Positive: neck supple, trachea midline Cardiac: Positive: irregularly irregular, S1/S2 Lungs: Positive: Decreased Breath Sounds Neuro: Positive: Grossly Intact Abdomen: Positive: Soft, Active Bowel Sounds. Negative: Tender Skin: Positive: Clear. Negative: Rash Musculoskeletal: Normal Range of Motion Extremities: Present: normal. Absent: edema - Imaging and Cardiology EKG: image reviewed - EKG Sinus rhythms and dysrhythmias: sinus rhythm
--- NOTE | 2018-11-15 13:38 | Discharge Summary ---
Providers - Providers Date of Admission: 11/09/18 22:20 Date of discharge: 11/15/18 Attending physician: ELIZABETH DIMAS 11/09/18 20:27 Consult to Physician [CONS] Urgent Comment: Dr. Tillman spoke with Dr. Dhillon @ 2025 Consulting Provider: MEREDITH DHILLON Physician Instructions: Reason For Exam: renal insuf, hyponatremia 11/10/18 08:07 Consult to Physician [CONS] Routine Comment: Consulting Provider: MARSHA YANCEY Physician Instructions: Reason For Exam: positive cardiac enzymes/afib/risk factors 11/10/18 11:52 Occupational Therapy Evaluate and Treat [CONS] Routine Comment: Reason For Exam: weakness/fall at home Physical Therapy Evaluation and Treat [CONS] Routine Comment: Reason For Exam: weakness/fall at home Hospitalization Condition: Stable Disposition: DC-01 TO HOME OR SELFCARE Time spent for discharge: 32 min Core Measure Documentation - Palliative Care Palliative Care/ Comfort Measures: Not Applicable - Core Measures Any of the following diagnoses?: none Exam - Constitutional Vitals: Temp Pulse Resp BP Pulse Ox 98.6 F 69 18 112/63 97 11/15/18 12:07 11/15/18 13:15 11/15/18 12:07 11/15/18 13:15 11/15/18 12:07 General appearance: Present: no acute distress, well-nourished - EENT Eyes: Present: PERRL, EOM intact - Neck Neck: Present: supple, normal ROM - Respiratory Respiratory effort: normal Respiratory: bilateral: diminished, negative: rales, rhonchi, wheezing - Cardiovascular Rhythm: regular Heart Sounds: Present: S1 & S2 - Extremities Extremities: no ischemia, No edema - Abdominal General gastrointestinal: Present: soft, non-tender, non-distended, normal bowel sounds - Integumentary Integumentary: Present: clear - Musculoskeletal Musculoskeletal: strength equal bilaterally - Psychiatric Psychiatric: appropriate mood/affect, cooperative - Neurologic Neurologic: CNII-XII intact, moves all extremities Plan Activity: advance as tolerated, fall precautions Diet: diabetic Additional Instructions: f/u private Cardiology in 1-2 wks Follow up with: [facility] [Other] - 7 Days VAN GARRIDO MD [Staff Physician] - 7 Days Prescriptions: Apixaban [Eliquis] 5 mg PO Q12HR #60 tablet Metoprolol [Lopressor TAB] 25 mg PO TID #90 tablet
[2018-11-15 17:03] VITALS: BP 103/60
== END 2018-11-15 18:15 | disposition home health service (06) | DRG 280 ==
LOC: ED 14:26 → 4A 22:20
PROVIDERS: ADMIT Internal Medicine; ATTEND Internal Medicine
DX: I21.4 Non-ST elevation (NSTEMI) myocardial infarction (principal); N17.0 Acute kidney failure with tubular necrosis; E87.1 Hypo-osmolality and hyponatremia; R74.8 Abnormal levels of other serum enzymes; S00.03XA Contusion of scalp, initial encounter; E86.0 Dehydration; I48.91 Unspecified atrial fibrillation; I48.0 Paroxysmal atrial fibrillation; W18.30XA Fall on same level, unspecified, initial encounter; T50.2X5A Adverse effect of carbonic-anhydrase inhibitors, benzothiadiazides and other diuretics, initial encounter; E83.52 Hypercalcemia; E11.9 Type 2 diabetes mellitus without complications; I10 Essential (primary) hypertension; Z82.49 Family history of ischemic heart disease and other diseases of the circulatory system; Z79.84 Long term (current) use of oral hypoglycemic drugs; Y93.89 Activity, other specified; Y92.098 Other place in other non-institutional residence as the place of occurrence of the external cause; Y99.8 Other external cause status; Z87.891 Personal history of nicotine dependence; T46.0X5A Adverse effect of cardiac-stimulant glycosides and drugs of similar action, initial encounter; Y92.238 Other place in hospital as the place of occurrence of the external cause
CPT/HCPCS: 36415; 70450; 71045; 72125; 80048; 80061; 80076; 80162; 81001; 82436; 82550; 82553; 82962; 83036; 83880; 83930; 83935; 84300; 84484; 85025; 85027; 93005; 93010; 93306; 96360; 96361; G0378; J1650; J1815; J7030

== ENCOUNTER 2019-06-18 21:09 | Observation (INO) | payer MEDICARE ==
[2019-06-18] MEDS ORDERED: FAMOTIDINE 20 MG/2 ML INJ IV ONE (23:20)
--- NOTE | 2019-06-18 23:21 | Emergency Department Report ---
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 fib, renal insufficiency, lower extremity edema She is currently anticoagulated with Eliquis. She is not currently taking digoxin. As per prior documentation of cardiology, patient does not have a history of heart disease or PA. The patient presents to the ER today with a few hours of nontraumatic abdominal pain. The patient has difficulty localizing the pain, but thinks it is mostly supraumbilical. She describes it as cramping and gas-like in nature. Denies headache, neck pain, chest pain, shortness of breath, irritative and obstructive urinary symptoms, nausea vomiting diarrhea. Her pain does not radiate anywhere, and it was decreased with Pepcid/famotidine. At the moment, she is not having any physical symptoms at this time. MD Complaint: abdominal pain -: Gradual, hour(s) Location: suprapubic Severity: mild Quality: cramping Consistency: now resolved Improves With: medication, rest Worsens With: nothing - Related Data Home Medications Medication Instructions Recorded Confirmed Last Taken Furosemide [Lasix TAB] 40 mg PO DAILY 11/09/18 11/09/18 Unknown metFORMIN [Glucophage] 500 mg PO BID 11/09/18 11/09/18 Unknown Previous Rx's Medication Instructions Recorded Last Taken Type Apixaban [Eliquis] 5 mg PO Q12HR #60 tablet 11/15/18 Unknown Rx Metoprolol [Lopressor TAB] 25 mg PO TID #90 tablet 11/15/18 Unknown Rx Allergies Allergy/AdvReac Type Severity Reaction Status Date / Time No Known Allergies Allergy Unverified 11/09/18 14:45 ED Review of Systems ROS: Stated complaint: ABDOMINAL PAIN Other details as noted in HPI Constitutional: denies: fever Eyes: denies: eye discharge ENT: denies: congestion Cardiovascular: denies: syncope Gastrointestinal: abdominal pain Genitourinary: denies: dysuria Musculoskeletal: myalgia, other (Chronic bilateral lower extremity swelling) Neurological: weakness (Chronic) Hematological/Lymphatic: denies: easy bleeding ED Past Medical Hx - Past Medical History Hx Hypertension: Yes Hx Congestive Heart Failure: Yes Hx Diabetes: Yes (NIDDM) Additional medical history: AFib - Surgical History Additional Surgical History: ablation - Social History Smoking Status: Former Smoker Substance Use Type: None - Medications Home Medications: Home Medications Medication Instructions Recorded Confirmed Last Taken Type Furosemide [Lasix TAB] 40 mg PO DAILY 11/09/18 11/09/18 Unknown History metFORMIN [Glucophage] 500 mg PO BID 11/09/18 11/09/18 Unknown History Apixaban [Eliquis] 5 mg PO Q12HR #60 tablet 11/15/18 Unknown Rx Metoprolol [Lopressor TAB] 25 mg PO TID #90 tablet 11/15/18 Unknown Rx ED Physical Exam - General Limitations: No Limitations General appearance: alert, in no apparent distress - Head Head exam: Present: atraumatic, normocephalic - Eye Eye exam: Present: normal appearance, EOMI. Absent: nystagmus - ENT ENT exam: Present: normal exam, normal orophraynx, mucous membranes moist, normal external ear exam - Neck Neck exam: Present: normal inspection, full ROM. Absent: tenderness, meningismus - Respiratory Respiratory exam: Present: normal lung sounds bilaterally. Absent: respiratory distress - Cardiovascular Cardiovascular Exam: Present: bradycardia, irregular rhythm, normal heart sounds. Absent: systolic murmur, diastolic murmur, rubs, gallop - GI/Abdominal GI/Abdominal exam: Present: soft, tenderness, other (Epigastric tenderness, right upper quadrant tenderness). Absent: distended, guarding, rebound, rigid, pulsatile mass - Extremities Exam Extremities exam: Present: normal inspection, full ROM, pedal edema, other (2+ pulses noted in the bilateral upper and lower extremities. There is no palpable cord. negative Homans sign. Muscular compartments are soft. The pelvis is stable.). Absent: calf tenderness - Back Exam Back exam: Present: normal inspection, full ROM. Absent: tenderness, CVA tenderness (R), CVA tenderness (L), paraspinal tenderness, vertebral tenderness - Neurological Exam Neurological exam: Present: alert, other (There is no facial droop. The tongue is midline. Extraocular movements are intact bilaterally. There is 5 out of 5 strength in bilateral upper and lower extremities. Sensation is intact to light touch bilateral upper and lower extremities. There is no past-pointing. ). Absent: motor sensory deficit - Psychiatric Psychiatric exam: Present: normal affect, normal mood - Skin Skin exam: Present: warm, dry, intact, normal color. Absent: rash ED Course Vital Signs 06/18/19 06/18/19 06/18/19 21:17 21:28 22:01 Temperature 98.8 F Pulse Rate 62 53 L Respiratory 20 Rate Blood Pressure 141/68 Blood Pressure 185/95 [Right] O2 Sat by Pulse 97 97 100 Oximetry 06/18/19 06/19/19 06/19/19 23:01 00:01 00:19 Temperature Pulse Rate 49 L 55 L Respiratory 14 16 20 Rate Blood Pressure 154/63 170/72 Blood Pressure [Right] O2 Sat by Pulse 96 100 100 Oximetry - Reevaluation(s) Reevaluation #1: 06/19/19 01:19 Differential diagnosis, including but limited to: GERD, gastritis, hiatal hernia, pancreatitis, urinary tract infection, cholecystitis, biliary colic, constipation, acs Assessment and plan: 84-year-old female with resolving abdominal pain. She is afebrile with reassuring vital signs. Screening laboratory studies are fairly unremarkable. Her EKG is unchanged from her prior EKG. Troponin negative x1 A right upper quadrant ultrasound did show stones, without evidence of cholecystitis, a CT scan of abdomen pelvis was negative for biliary pathology, and constipation was suggested. Advanced age and cardiovascular risk factor profile is reviewed and appreciated Repeat EKG, repeat troponin pending, patient indicates that she feels better, it would be reasonable to have the patient closely follow-up with her outpatient physician, assuming repeat EKG and and troponin negative for acute findings. 06/19/19 02:44 Reevaluation #2: 06/19/19 02:21 Reexamined multiple times. Feeling improved. Discussed laboratory findings, imaging findings with patient and family member. We discussed diet and lifestyle modifications. Patient and family have verbalized understanding. Be lly soft on repeat exam. However, repeat troponin is elevated, in the context of normal renal function. Given her nonspecific complaints, location of pain, advanced age, and cardiovascular risk factor profile, we will admit the patient to the medical service for further evaluation. I discussed this with patient and family who verbalized understanding. Contacted hospital physician, Dr. Barbara Jaquez who has accepted the patient to the medical service. As a courtesy, we will order a routine cardiology consult to follow in conjunction. The patient is hemodynamically stable at this time and appears quite comfortable, does not require emergency cardiology evaluation at this moment. 06/19/19 02:38 06/19/19 02:43 ED Medical Decision Making - Lab Data Result diagrams: 06/18/19 23:36 06/18/19 23:36 Vital Signs 06/18/19 06/18/19 06/18/19 21:17 21:28 22:01 Temperature 98.8 F Pulse Rate 62 53 L Respiratory 20 Rate Blood Pressure 141/68 Blood Pressure 185/95 [Right] O2 Sat by Pulse 97 97 100 Oximetry 06/18/19 06/19/19 06/19/19 23:01 00:01 00:19 Temperature Pulse Rate 49 L 55 L Respiratory 14 16 20 Rate Blood Pressure 154/63 170/72 Blood Pressure [Right] O2 Sat by Pulse 96 100 100 Oximetry Lab Results 06/18/19 06/18/19 06/18/19 Range/Units 22:27 23:36 23:36 WBC (4.5-11.0) K/mm3 RBC (3.65-5.03) M/mm3 Hgb (10.1-14.3) gm/dl Hct (30.3-42.9) % MCV (79-97) fl MCH (28-32) pg MCHC (30-34) % RDW (13.2-15.2) % Plt Count (140-440) K/mm3 Lymph % (Auto) (13.4-35.0) % [place] % (Auto) (0.0-7.3) % Eos % (Auto) (0.0-4.3) % Baso % (Auto) (0.0-1.8) % Lymph # (1.2-5.4) K/mm3 [place] # (0.0-0.8) K/mm3 Eos # (0.0-0.4) K/mm3 Baso # (0.0-0.1) K/mm3 Seg Neutrophils % (40.0-70.0) % Seg Neutrophils # (1.8-7.7) K/mm3 PT 16.1 H (12.2-14.9) Sec. INR 1.27 H (0.87-1.13) APTT 32.7 (24.2-36.6) Sec. Sodium (137-145) mmol/L Potassium (3.6-5.0) mmol/L Chloride (98-107) mmol/L Carbon Dioxide (22-30) mmol/L Anion Gap mmol/L BUN (7-17) mg/dL Creatinine (0.7-1.2) mg/dL Estimated GFR ml/min BUN/Creatinine Ratio % Glucose (65-100) mg/dL Lactic Acid (0.7-2.0) mmol/L Calcium (8.4-10.2) mg/dL Magnesium (1.7-2.3) mg/dL Total Bilirubin (0.1-1.2) mg/dL AST (5-40) units/L ALT (7-56) units/L Alkaline Phosphatase (35-129) units/L Total Creatine Kinase (30-135) units/L Troponin T 0.024 (0.00-0.029) ng/mL Total Protein (6.3-8.2) g/dL Albumin (3.9-5) g/dL Albumin/Globulin Ratio % Lipase (13-60) units/L Urine Color Straw (Yellow) Urine Turbidity Clear (Clear) Urine pH 7.0 (5.0-7.0) Ur Specific [place] 1.009 (1.003-1.030) Urine Protein <15 mg/dl (Negative) mg/dL Urine Glucose (UA) Neg (Negative) mg/dL Urine Ketones Neg (Negative) mg/dL Urine Blood Neg (Negative) Urine Nitrite Neg (Negative) Urine Bilirubin Neg (Negative) Urine Urobilinogen < 2.0 (<2.0) mg/dL Ur Leukocyte Esterase Neg (Negative) Urine WBC (Auto) < 1.0 (0.0-6.0) /HPF Urine RBC (Auto) 1.0 (0.0-6.0) /HPF U Epithel Cells (Auto) 1.0 (0-13.0) /HPF Urine Bacteria (Auto) 1+ (Negative) /HPF Urine Mucus Few /HPF Digoxin (0.9-2.0) ng/mL 06/18/19 06/18/19 06/18/19 Range/Units 23:36 23:36 23:36 WBC 7.0 (4.5-11.0) K/mm3 RBC 2.96 L (3.65-5.03) M/mm3 Hgb 10.1 (10.1-14.3) gm/dl Hct 29.2 L (30.3-42.9) % MCV 99 H (79-97) fl MCH 34 H (28-32) pg MCHC 35 H (30-34) % RDW 14.1 (13.2-15.2) % Plt Count 187 (140-440) K/mm3 Lymph % (Auto) 24.5 (13.4-35.0) % [place] % (Auto) 6.3 (0.0-7.3) % Eos % (Auto) 1.7 (0.0-4.3) % Baso % (Auto) 0.2 (0.0-1.8) % Lymph # 1.7 (1.2-5.4) K/mm3 [place] # 0.4 (0.0-0.8) K/mm3 Eos # 0.1 (0.0-0.4) K/mm3 Baso # 0.0 (0.0-0.1) K/mm3 Seg Neutrophils % 67.3 (40.0-70.0) % Seg Neutrophils # 4.7 (1.8-7.7) K/mm3 PT (12.2-14.9) Sec. INR (0.87-1.13) APTT (24.2-36.6) Sec. Sodium 139 (137-145) mmol/L Potassium 4.3 (3.6-5.0) mmol/L Chloride 98.8 (98-107) mmol/L Carbon Dioxide 28 (22-30) mmol/L Anion Gap 17 mmol/L BUN 23 H (7-17) mg/dL Creatinine 1.1 (0.7-1.2) mg/dL Estimated GFR 57 ml/min BUN/Creatinine Ratio 21 % Glucose 136 H (65-100) mg/dL Lactic Acid (0.7-2.0) mmol/L Calcium 10.4 H (8.4-10.2) mg/dL Magnesium 1.80 (1.7-2.3) mg/dL Total Bilirubin 0.70 (0.1-1.2) mg/dL AST 15 (5-40) units/L ALT 8 (7-56) units/L Alkaline Phosphatase 65 (35-129) units/L Total Creatine Kinase 52 (30-135) units/L Troponin T (0.00-0.029) ng/mL Total Protein 6.9 (6.3-8.2) g/dL Albumin 3.9 (3.9-5) g/dL Albumin/Globulin Ratio 1.3 % Lipase 23 (13-60) units/L Urine Color (Yellow) Urine Turbidity (Clear) Urine pH (5.0-7.0) Ur Specific [place] (1.003-1.030) Urine Protein (Negative) mg/dL Urine Glucose (UA) (Negative) mg/dL Urine Ketones (Negative) mg/dL Urine Blood (Negative) Urine Nitrite (Negative) Urine Bilirubin (Negative) Urine Urobilinogen (<2.0) mg/dL Ur Leukocyte Esterase (Negative) Urine WBC (Auto) (0.0-6.0) /HPF Urine RBC (Auto) (0.0-6.0) /HPF U Epithel Cells (Auto) (0-13.0) /HPF Urine Bacteria (Auto) (Negative) /HPF Urine Mucus /HPF Digoxin 0.3 L (0.9-2.0) ng/mL 06/18/19 Range/Units 23:36 WBC (4.5-11.0) K/mm3 RBC (3.65-5.03) M/mm3 Hgb (10.1-14.3) gm/dl Hct (30.3-42.9) % MCV (79-97) fl MCH (28-32) pg MCHC (30-34) % RDW (13.2-15.2) % Plt Count (140-440) K/mm3 Lymph % (Auto) (13.4-35.0) % [place] % (Auto) (0.0-7.3) % Eos % (Auto) (0.0-4.3) % Baso % (Auto) (0.0-1.8) % Lymph # (1.2-5.4) K/mm3 [place] # (0.0-0.8) K/mm3 Eos # (0.0-0.4) K/mm3 Baso # (0.0-0.1) K/mm3 Seg Neutrophils % (40.0-70.0) % Seg Neutrophils # (1.8-7.7) K/mm3 PT (12.2-14.9) Sec. INR (0.87-1.13) APTT (24.2-36.6) Sec. Sodium (137-145) mmol/L Potassium (3.6-5.0) mmol/L Chloride (98-107) mmol/L Carbon Dioxide (22-30) mmol/L Anion Gap mmol/L BUN (7-17) mg/dL Creatinine (0.7-1.2) mg/dL Estimated GFR ml/min BUN/Creatinine Ratio % Glucose (65-100) mg/dL Lactic Acid 1.50 (0.7-2.0) mmol/L Calcium (8.4-10.2) mg/dL Magnesium (1.7-2.3) mg/dL Total Bilirubin (0.1-1.2) mg/dL AST (5-40) units/L ALT (7-56) units/L Alkaline Phosphatase (35-129) units/L Total Creatine Kinase (30-135) units/L Troponin T (0.00-0.029) ng/mL Total Protein (6.3-8.2) g/dL Albumin (3.9-5) g/dL Albumin/Globulin Ratio % Lipase (13-60) units/L Urine Color (Yellow) Urine Turbidity (Clear) Urine pH (5.0-7.0) Ur Specific [place] (1.003-1.030) Urine Protein (Negative) mg/dL Urine Glucose (UA) (Negative) mg/dL Urine Ketones (Negative) mg/dL Urine Blood (Negative) Urine Nitrite (Negative) Urine Bilirubin (Negative) Urine Urobilinogen (<2.0) mg/dL Ur Leukocyte Esterase (Negative) Urine WBC (Auto) (0.0-6.0) /HPF Urine RBC (Auto) (0.0-6.0) /HPF U Epithel Cells (Auto) (0-13.0) /HPF Urine Bacteria (Auto) (Negative) /HPF Urine Mucus /HPF Digoxin (0.9-2.0) ng/mL - EKG Data -: EKG Interpreted by Al - EKG Data 06/19/19 01:23 The EKG shows a bradycardic rhythm, rate 55 bpm, there is a left axis deviation, appears to be first-degree AV block, with sinus arrhythmia versus A. fib. There is a left anterior fascicular block. There is low voltage. The EKG is abnormal. It is unchanged from a prior EKG from 10/2018. This is most likely a sinus bradycardia, with intermittent premature atrial contractions. AL interval prolonged, QTC prolonged, left ventricular hypertrophy noted - Radiology Data Radiology results: report reviewed, image reviewed Print Report Referring Physician: RACHID DURAN Patient Name: SUMEET ELENA Date of : 1935 Sex: Female Report Date: 2019-06-19 Report Status: [place] [address] Cat Scan Report Signed Patient: SUMEET ELENA MR#: [id number] : 1935 Acct:[id number] Age/Sex: 84 / F ADM Date: 06/18/19 Loc: ED Attending Dr: Ordering Physician: RACHID DURAN MD Date of Service: 06/18/19 Procedure(s): CT abdomen pelvis w con Accession Number(s): [id number] cc: RACHID DURAN MD CT ABDOMEN AND PELVIS WITH IV CONTRAST INDICATION: abd pain. COMPARISON: None available. TECHNIQUE: All CT scans at this facility use dose modulation, automated exposure control, iterative reconstruction or weight based dosing, when appropriate, to reduce radiation dose to as low as reasonably achievable. FINDINGS: Lung Bases: No acute findings. Skeletal System: No acute abnormality. ABDOMEN: Liver: No significant abnormality. Gallbladder: Sludge and small stones are noted in the gallbladder fundus. The gallbladder is otherwise unremarkable. Bile Ducts: No significant abnormality. Pancreas: No significant abnormality. Spleen: No significant abnormality. Adrenals: No significant abnormality. Right Kidney: Incidental cysts, no acute findings. Left Kidney: Incidental cysts, no acute findings. Upper GI tract: No significant abnormality. Lymph Nodes: No significant adenopathy. Aorta: No significant abnormality. Additional Findings: No significant abnormality. PELVIS: Colon: No acute abnormality. There is mild constipation. The cecum is in the right upper quadrant. Urinary Bladder and Distal Ureters: No significant abnormality. Appendix: No significant abnormality. Lymph Nodes: No significant adenopathy. Additional Findings: None. IMPRESSION: 1. No acute process in the abdomen or pelvis. 2. Incidental findings, as above. Signer Name: Ferny Greene MD Signed: 06/19/2019 12:51 AM Workstation Name: [id number] Transcribed By: REGINE Dictated By: Ferny Greene MD Electronically Authenticated By: Ferny Greene MD Signed Date/Time: 06/19/19 0051 DD/ [id number] Print Report Referring Physician: RACHID DURAN Patient Name: SUMEET ELENA Date of : 1935 Sex: Female Report Date: 2019-06-19 Report Status: Finalized Findings [facility] [address] [place] [address] Ultrasound Report Signed Patient: SUMEET ELENA MR#: [id number] : 1935 Acct:[id number] Age/Sex: 84 / F ADM Date: 06/18/19 Loc: ED Attending Dr: Ordering Physician: RACHID DURAN MD Date of Service: 06/18/19 Procedure(s): US abdomen limited Accession Number(s): [id number] cc: RACHID DURAN MD ULTRASOUND ABDOMEN, LIMITED (RIGHT UPPER QUADRANT) INDICATION: ruq pain. COMPARISON: None available. FINDINGS: Pancreas: Visualized portion shows no significant abnormality. Liver: Normal. Gallbladder: Sludge and multiple punctate stones are noted in the gallbladder. No gallbladder wall edema or pericholecystic fluid. Bile ducts: Normal. Common Bile Duct measures 5 mm. Free fluid: None. Additional Findings: Incidental right renal cyst. IMPRESSION: 1. Cholelithiasis. No sonographic evidence of acute cholecystitis. Signer Name: Ferny Greene MD Signed: 06/19/2019 12:45 AM Workstation Name: [id number] Transcribed By: Dictated By: Ferny Greene MD Electronically Authenticated By: Ferny Greene MD Signed Date/Time: 06/19/19 0045 DD/ [id number] Critical care attestation.: If time is entered above; I have spent that time in minutes in the direct care of this critically ill patient, excluding procedure time. ED Disposition Clinical Impression: Abdominal pain, Biliary calculi, Elevated troponin Disposition: OP ADMIT IP TO THIS HOSP Is pt being admited?: Yes Does the pt Need Aspirin: Yes Condition: Stable Additional Instructions: Avoid consumption of Motrin, ibuprofen, Naprosyn, Aleve. Do not take metformin medication for the next 2 days, if patient takes this medication. Drink 2 to 4 cups of water per day, and eat fiber, lean protein, and vegetables. Patient may take [id number] Metamucil as well as needed for pain/ease of constipat ion. 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 Please return to the emergency room right away with new, worsened or different symptoms, or symptoms not present on the initial emergency room evaluation. Patient may take [id number] Pepcid, 20 mg by mouth, every 12-24 hours as needed for pain, alternating with Tylenol [id number], 325 mg by mouth, every 4-6 hours as needed for pain. Referrals: [facility], [place] [Other] - 3-5 Days [facility] [Provider Group] - 3-5 Days [facility] [Provider Group] - 3-5 Days
[2019-06-18 23:48] LABS: Bacteria,Urine 1+ /HPF (Negative); Bilirubin,Urine NEG (Negative); Blood,Urine NEG (Negative); Color,Urine Straw (Yellow); Mucus,Urine FEW /HPF; Protein,Urine <15 mg/dL mg/dL (Negative); Urobilinogen,Urine < 2.0 mg/dL (<2.0); WBC,Urine < 1.0 /HPF (0.0-6.0)
[2019-06-18 23:50] LABS: Basophils % (Auto) 0.2 % (0.0-1.8); Eosinophils # (Auto) 0.1 K/mm3 (0.0-0.4); Eosinophils % (Auto) 1.7 % (0.0-4.3); Hematocrit 29.2 % (30.3-42.9); Hemoglobin 10.1 gm/dl (10.1-14.3); Lymphocytes # (Auto) 1.7 K/mm3 (1.2-5.4); Lymphocytes % (Auto) 24.5 % (13.4-35.0); Mean Corpuscular HGB Conc 35 % (30-34); Mean Corpuscular Volume 99 fl (79-97); Monocytes # (Auto) 0.4 K/mm3 (0.0-0.8); Monocytes % (Auto) 6.3 % (0.0-7.3); Platelet Count 187 K/mm3 (140-440); Red Blood Count 2.96 M/mm3 (3.65-5.03); Red Cell Distribution Width 14.1 % (13.2-15.2)
[2019-06-19 00:01] LABS: INR 1.27 (0.87-1.13)
[2019-06-19 00:02] LABS: Partial Thromboplastin Time 32.7 Sec. (24.2-36.6)
[2019-06-19 00:11] LABS: Albumin 3.9 g/dL (3.9-5); Calcium 10.4 mg/dL (8.4-10.2)
--- NOTE | 2019-06-19 00:50 | Ultrasound Report ---
ULTRASOUND ABDOMEN, LIMITED (RIGHT UPPER QUADRANT) INDICATION: ruq pain. COMPARISON: None available. FINDINGS: Pancreas: Visualized portion shows no significant abnormality. Liver: Normal. Gallbladder: Sludge and multiple punctate stones are noted in the gallbladder. No gallbladder wall ed azul or pericholecystic fluid. Bile ducts: Normal. Common Bile Duct measures 5 mm. Free fluid: None. Additional Findings: Incidental right renal cyst. IMPRESSION: 1. Cholelithiasis. No sonographic evidence of acute cholecystitis. Signer Name: Ferny Greene MD Signed: 06/19/2019 12:45 AM Workstation Name: [email or web address]
--- NOTE | 2019-06-19 00:56 | Cat Scan Report ---
CT ABDOMEN AND PELVIS WITH IV CONTRAST INDICATION: abd pain. COMPARISON: None available. TECHNIQUE: All CT scans at this facility use dose modulation, automated exposure control, iterative reconstructi on or weight based dosing, when appropriate, to reduce radiation dose to as low as reasonably achieva ble. FINDINGS: Lung Bases: No acute findings. Skeletal System: No acute abnormality. ABDOMEN: Liver: No significant abnormality. Gallbladder: Sludge and small stones are noted in the gallbladder fundus. The gallbladder is otherwis e unremarkable. Bile Ducts: No significant abnormality. Pancreas: No significant abnormality. Spleen: No significant abnormality. Adrenals: No significant abnormality. Right Kidney: Incidental cysts, no acute findings. Left Kidney: Incidental cysts, no acute findings. Upper GI tract: No significant abnormality. Lymph Nodes: No significant adenopathy. Aorta: No significant abnormality. Additional Findings: No significant abnormality. PELVIS: Colon: No acute abnormality. There is mild constipation. The cecum is in the right upper quadrant. Urinary Bladder and Distal Ureters: No significant abnormality. Appendix: No significant abnormality. Lymph Nodes: No significant adenopathy. Additional Findings: None. IMPRESSION: 1. No acute process in the abdomen or pelvis. 2. Incidental findings, as above. Signer Name: Ferny Greene MD Signed: 06/19/2019 12:51 AM Workstation Name: [id number]
[2019-06-19] MEDS ORDERED: ACETAMINOPHEN 325 MG/10.15 ML ORAL LIQD UNIT DOSE PO ONE (01:03)
[2019-06-19] MEDS ORDERED: SUCRALFATE 1 GM/10 ML ORAL LIQD PO ONE (01:03)
[2019-06-19] MEDS ORDERED: ASPIRIN 81 MG TAB CHEW PO ONE (02:45)
[2019-06-19 03:27] LABS: Chol/HDL Ratio 2.08 %
[2019-06-19] MEDS ORDERED: NITROGLYCERIN 0.4 MG TAB SUBL SL PRN (03:37)
[2019-06-19] MEDS ORDERED: MORPHINE 2 MG/1 ML INJ IV PRN (03:37)
[2019-06-19] MEDS ORDERED: ONDANSETRON 4 MG/2 ML INJ IV PRN (03:37)
[2019-06-19] MEDS ORDERED: MAGNESIUM HYDROXIDE (MOM) ORAL LIQD UDC PO PRN (03:37)
[2019-06-19] MEDS ORDERED: ACETAMINOPHEN 325 MG TAB PO PRN (03:37)
--- NOTE | 2019-06-19 04:08 | History and Physical Report ---
History of Present Illness Date of examination: 06/19/19 Date of admission: 06/19/19 03:11 Chief complaint: ABDOMINAL PAIN History of present illness: 84-year-old -[place] female with known history of hypertension, diabetes mellitus, paroxysmal atrial fibrillation chronic kidney disease presenting to the emergency room today complaining of abdominal pain. Abdominal pain is said to be in the upper abdomen said to be crampy in nature. No no relieving or e xacerbating factor. There is no radiation of pain. She was given some famotidine in the emergency room with some relief. She denies any chest pain or shortness of breath, she denies any nausea or vomiting and denies any diarrhea. Work-up in the emergency room including CT abdomen and ultrasound of the gallbladder revealed some gallstones. However she had a slightly elevated troponin but there were no EKG changes and no chest pain. Past History Past Medical History: atrial fib, diabetes, heart failure, hypertension Past Surgical History: No surgical history Social history: smoking (Former smoker) Family history: diabetes, hypertension Medications and Allergies Allergies Allergy/AdvReac Type Severity Reaction Status Date / Time No Known Allergies Allergy Unverified 11/09/18 14:45 Home Medications Medication Instructions Recorded Confirmed Last Taken Type Furosemide [Lasix TAB] 40 mg PO DAILY 11/09/18 06/19/19 Unknown History metFORMIN [Glucophage] 500 mg PO BID 11/09/18 06/19/19 Unknown History Apixaban [Eliquis] 5 mg PO Q12HR #60 tablet 11/15/18 06/19/19 Unknown Rx Metoprolol [Lopressor TAB] 25 mg PO TID #90 tablet 11/15/18 06/19/19 Unknown Rx Active Meds: Active Medications Acetaminophen (Tylenol) 650 mg PO Q4H PRN PRN Reason: Pain MILD(1-3)/Fever >100.5/HOPE Aspirin (Ecotrin) 325 mg PO QDAY RUBY Magnesium Hydroxide (Milk Of Magnesia) 30 ml PO Q4H PRN PRN Reason: Constipation Morphine Sulfate (Morphine) 2 mg IV Q5MIN PRN PRN Reason: Chest Pain unrelieved by NTG Nitroglycerin (Nitrostat) 0.4 mg SL Q5M PRN PRN Reason: Chest Pain Ondansetron HCl (Zofran) 4 mg IV Q8H PRN PRN Reason: Nausea And Vomiting Sodium Chloride (Sodium Chloride Flush Syringe 10 Ml) 10 ml IV BID RUBY Sodium Chloride (Sodium Chloride Flush Syringe 10 Ml) 10 ml IV PRN PRN PRN Reason: LINE FLUSH Review of Systems Constitutional: no fever, no chills Cardiovascular: palpitations, no chest pain, no shortness of breath Respiratory: no cough, no hemoptysis Gastrointestinal: abdominal pain, no nausea, no vomiting, no diarrhea Genitourinary Female: no dysuria, no hematuria Integumentary: no rash, no pruritis Neurological: no headaches, no change in mentation Exam - Constitutional Vitals: Temp Pulse Resp BP Pulse Ox 98.8 F 55 L 20 170/72 100 06/18/19 21:28 06/19/19 00:01 06/19/19 00:19 06/19/19 00:01 06/19/19 00:19 General appearance: Present: no acute distress, well-nourished - EENT Eyes: Present: PERRL, EOM intact ENT: hearing intact, clear oral mucosa, dentition normal - Neck Neck: Present: supple, normal ROM - Respiratory Respiratory effort: normal Respiratory: bilateral: CTA - Cardiovascular Rhythm: regular Heart Sounds: Present: S1 & S2 - Extremities Extremities: no ischemia, pulses intact, pulses symmetrical, Full ROM Extremity abnormal: edema (1+ bilateral ankle edema) Peripheral Pulses: within normal limits - Abdominal General gastrointestinal: Present: soft, non-tender, non-distended - Integumentary Integumentary: Present: clear, warm, dry - Musculoskeletal Musculoskeletal: strength equal bilaterally - Psychiatric Psychiatric: appropriate mood/affect, intact judgment & insight, cooperative - Neurologic Neurologic: CNII-XII intact, moves all extremities Results - Labs CBC & Chem 7: 06/19/19 05:40 06/19/19 05:40 Labs: Abnormal lab results 06/18/19 06/18/19 06/18/19 Range/Units 23:36 23:36 23:36 RBC (3.65-5.03) M/mm3 Hct (30.3-42.9) % MCV (79-97) fl MCH (28-32) pg MCHC (30-34) % PT 16.1 H (12.2-14.9) Sec. INR 1.27 H (0.87-1.13) BUN 23 H (7-17) mg/dL Glucose 136 H (65-100) mg/dL Calcium 10.4 H (8.4-10.2) mg/dL Troponin T (0.00-0.029) ng/mL Cholesterol (50-199) mg/dL HDL Cholesterol (40-59) mg/dL Digoxin 0.3 L (0.9-2.0) ng/mL 06/18/19 06/19/19 Range/Units 23:36 02:11 RBC 2.96 L (3.65-5.03) M/mm3 Hct 29.2 L (30.3-42.9) % MCV 99 H (79-97) fl MCH 34 H (28-32) pg MCHC 35 H (30-34) % PT (12.2-14.9) Sec. INR (0.87-1.13) BUN (7-17) mg/dL Glucose (65-100) mg/dL Calcium (8.4-10.2) mg/dL Troponin T 0.030 H D (0.00-0.029) ng/mL Cholesterol 206 H (50-199) mg/dL HDL Cholesterol 99 H (40-59) mg/dL Digoxin (0.9-2.0) ng/mL Assessment and Plan - Patient Problems (1) Abdominal pain Current Visit: Yes Status: Acute Plan to address problem: Possibly secondary to gallstones. Will give and analgesic medication as needed. (2) Elevated troponin Current Visit: Yes Status: Acute Plan to address problem: Monitor serial cardiac enzymes. Patient placed on aspirin. Will schedule for stress test. Will also request cardiology consult for evaluation and recommendation. (3) Diabetes mellitus Current Visit: No Status: Chronic Qualifiers: Diabetes mellitus type: type 2 Plan to address problem: We will monitor blood glucose and resume routine home medications (4) Paroxysmal atrial fibrillation Current Visit: No Status: Chronic Plan to address problem: Rate is controlled. Will resume routine home medications. (5) DVT prophylaxis Current Visit: Yes Status: Acute Plan to address problem: Patient on anticoagulation (6) Full code status Current Visit: Yes Status: Acute
[2019-06-19] MEDS ORDERED: DEXTROSE 50% IN WATER (25GM) 50 ML SYRINGE IV PRN (04:09)
[2019-06-19] MEDS ORDERED: ASPIRIN 81 MG TAB CHEW ONE (05:16)
[2019-06-19 06:09] LABS: Basophils % (Auto) 0.4 % (0.0-1.8); Eosinophils # (Auto) 0.1 K/mm3 (0.0-0.4); Eosinophils % (Auto) 2.2 % (0.0-4.3); Hematocrit 31.2 % (30.3-42.9); Hemoglobin 10.5 gm/dl (10.1-14.3); Lymphocytes # (Auto) 1.5 K/mm3 (1.2-5.4); Lymphocytes % (Auto) 29.5 % (13.4-35.0); Mean Corpuscular HGB Conc 34 % (30-34); Mean Corpuscular Volume 99 fl (79-97); Monocytes # (Auto) 0.4 K/mm3 (0.0-0.8); Monocytes % (Auto) 7.7 % (0.0-7.3); Platelet Count 184 K/mm3 (140-440); Red Blood Count 3.14 M/mm3 (3.65-5.03)
[2019-06-19 06:29] LABS: Calcium 10.4 mg/dL (8.4-10.2)
[2019-06-19] MEDS: INSULIN LISPRO 100 UNIT/ML SUB-Q SCH ×3 (07:58→18:34)
[2019-06-19] MEDS: METOPROLOL TARTRATE 25 MG TAB PO SCH ×2 (08:26→13:23)
[2019-06-19] MEDS ORDERED: APIXABAN 5 MG TAB PO SCH (10:00)
[2019-06-19] MEDS ORDERED: FUROSEMIDE 40 MG TAB PO SCH (10:00)
[2019-06-19] MEDS: metFORMIN 500 MG TAB PO SCH ×2 (10:36→18:34)
[2019-06-19] MEDS ORDERED: PNEUMOCOCCAL 23 Valent 0.5 ML VIAL IM ONE (12:00)
[2019-06-19 13:21] VITALS: BP 136/67
--- NOTE | 2019-06-19 15:05 | Discharge Summary ---
Providers - Providers Date of Admission: 06/19/19 03:11 Date of discharge: 06/19/19 Attending physician: ADRIENNE RENDON 06/19/19 Consult to Cardiac Rehabilitation [CONS] Routine Reason For Exam: Phase I 06/19/19 03:40 Consult to Cardiology [CONS] Routine Consulting Provider: PURNIMA YANCEY Reason For Exam: ELEVATED TROPONIN Hospitalization Condition: Stable Pertinent studies: abdomen US abdomen/pelvis CT Hospital course: Discharge diagnosis: (1) Abdominal pain, resolved Current Visit: Yes Status: Acute Plan to address problem: Possibly secondary to gallstones. abdominal US w/o sign of cholecystitis (2) Elevated troponin Current Visit: Yes Status: Acute Plan to address problem: likely from uncontrolled BP on admission, trended down, no chest pain, cardiology recommended outpt f/u (3) Diabetes mellitus Current Visit: No Status: Chronic Qualifiers: Diabetes mellitus type: type 2 Plan to address problem: cont routine home medications (4) Paroxysmal atrial fibrillation Current Visit: No Status: Chronic Plan to address problem: Rate is controlled. on eliquis (5) HTN, uncontrolled Current Visit: Yes Status: chronic Plan to address problem: Readjusted meds on discharge (6) Full code status Current Visit: Yes Status: Acute Disposition: DC-01 TO HOME OR SELFCARE Time spent for discharge: 34 minutes Core Measure Documentation - Palliative Care Palliative Care/ Comfort Measures: Not Applicable - Core Measures Any of the following diagnoses?: none Exam - Constitutional Vitals: Temp Pulse Resp BP Pulse Ox 97.8 F 50 L 18 136/67 98 06/19/19 13:10 06/19/19 13:23 06/19/19 13:10 06/19/19 13:10 06/19/19 13:10 General appearance: Present: no acute distress, well-nourished - EENT Eyes: Present: PERRL ENT: hearing intact, clear oral mucosa - Neck Neck: Present: supple, normal ROM - Respiratory Respiratory effort: normal Respiratory: bilateral: CTA - Cardiovascular Heart Sounds: Present: S1 & S2. Absent: rub, click - Extremities Extremities: pulses symmetrical, No edema Peripheral Pulses: within normal limits - Abdominal General gastrointestinal: Present: soft, non-tender, non-distended, normal bowel sounds - Integumentary Integumentary: Present: clear, warm, dry - Musculoskeletal Musculoskeletal: gait normal, strength equal bilaterally - Psychiatric Psychiatric: appropriate mood/affect, intact judgment & insight - Neurologic Neurologic: CNII-XII intact, moves all extremities Plan Activity: advance as tolerated Weight Bearing Status: Weight Bear as Tolerated Diet: low fat, low salt, diabetic [facility] - [facility]-5 Days [facility] [Provider Group] - 3-5 Days Prescriptions: Amlodipine Besylate [Norvasc] 5 mg PO DAILY #30 tablet
--- NOTE | 2019-06-19 15:16 | Consultation ---
History of Present Illness Consult date: 06/19/19 Consult reason: elevated troponin History of present illness: Patient was admitted with abdominal pain,was noted to have gall stones,Cardiology consulted because of elevated troponin. Patient's abdominal pain better. Patient's son in room.Patient is followed regularly by [facility],including director of partner marketing. Past History Past Medical History: atrial fib, diabetes, heart failure, hypertension Past Surgical History: No surgical history Social history: smoking (Former smoker) Family history: diabetes, hypertension Medications and Allergies Allergies Allergy/AdvReac Type Severity Reaction Status Date / Time No Known Allergies Allergy Unverified 11/09/18 14:45 Home Medications Medication Instructions Recorded Confirmed Last Taken Type Furosemide [Lasix TAB] 40 mg PO DAILY 11/09/18 06/19/19 Unknown History metFORMIN [Glucophage] 500 mg PO BID 11/09/18 06/19/19 Unknown History Apixaban [Eliquis] 5 mg PO Q12HR #60 tablet 11/15/18 06/19/19 Unknown Rx Amlodipine Besylate [Norvasc] 5 mg PO DAILY #30 tablet 06/19/19 Unknown Rx Metoprolol [Lopressor TAB] 25 mg PO BID #90 tablet 06/19/19 06/19/19 Unknown Rx Active Meds: Active Medications Acetaminophen (Tylenol) 650 mg PO Q4H PRN PRN Reason: Pain MILD(1-3)/Fever >100.5/HOPE Apixaban (Eliquis) 5 mg PO Q12HR [facility]; Protocol Last Admin: 06/19/19 10:36 Dose: 5 mg Documented by: Aspirin (Ecotrin) 325 mg PO QDAY [facility] Dextrose (D50w (25gm) Syringe) 0 ml IV Q30MIN PRN; Protocol PRN Reason: Hypoglycemia Furosemide (Lasix) 40 mg PO DAILY [facility] Last Admin: 06/19/19 10:36 Dose: 40 mg Documented by: Insulin Human Lispro (Humalog) 0 unit SUB-Q ACHS [facility]; Protocol Last Admin: 06/19/19 12:14 Dose: 3 unit Documented by: Magnesium Hydroxide (Milk Of Magnesia) 30 ml PO Q4H PRN PRN Reason: Constipation Metformin HCl (Glucophage) 500 mg PO BIDDIAB [facility] Last Admin: 06/19/19 10:36 Dose: 500 mg Documented by: Metoprolol Tartrate (Metoprolol) 25 mg PO TID [facility] Last Admin: 06/19/19 13:23 Dose: Not Given Documented by: Morphine Sulfate (Morphine) 2 mg IV Q5MIN PRN PRN Reason: Chest Pain unrelieved by NTG Nitroglycerin (Nitrostat) 0.4 mg SL Q5M PRN PRN Reason: Chest Pain Ondansetron HCl (Zofran) 4 mg IV Q8H PRN PRN Reason: Nausea And Vomiting Sodium Chloride (Sodium Chloride Flush Syringe 10 Ml) 10 ml IV BID [facility] Last Admin: 06/19/19 10:36 Dose: 10 ml Documented by: Sodium Chloride (Sodium Chloride Flush Syringe 10 Ml) 10 ml IV PRN PRN PRN Reason: LINE FLUSH Review of Systems Constitutional: no weight loss Ears, nose, mouth and throat: no ear discharge Breasts: deferred Cardiovascular: no chest pain, no orthopnea Respiratory: no cough Gastrointestinal: abdominal pain Genitourinary Female: no hematuria Rectal: no bleeding Integumentary: no rash Endocrine: no cold intolerance Hematologic/Lymphatic: no easy bruising Allergic/Immunologic: no urticaria Physical Examination Vital Signs Pulse Ox 97 06/18/19 21:17 General appearance: no acute distress Neck: Positive: trachea midline Cardiac: Positive: Regular Rhythm Lungs: Positive: clear to auscultation Neuro: Positive: Grossly Intact Abdomen: Positive: Soft Skin: Negative: Rash Extremities: Absent: edema Results 06/19/19 05:40 06/19/19 05:40 Cardiac Enzymes 06/18/19 Range/Units 23:36 AST 15 (5-40) units/L Coagulation 06/18/19 Range/Units 23:36 PT 16.1 H (12.2-14.9) Sec. INR 1.27 H (0.87-1.13) APTT 32.7 (24.2-36.6) Sec. Lipids 06/19/19 Range/Units 02:11 Triglycerides 63 (2-149) mg/dL Cholesterol 206 H (50-199) mg/dL HDL Cholesterol 99 H (40-59) mg/dL Cholesterol/HDL Ratio 2.08 % CBC 06/18/19 06/19/19 Range/Units 23:36 05:40 WBC 7.0 5.0 (4.5-11.0) K/mm3 RBC 2.96 L 3.14 L (3.65-5.03) M/mm3 Hgb 10.1 10.5 (10.1-14.3) gm/dl Hct 29.2 L 31.2 (30.3-42.9) % Plt Count 187 184 (140-440) K/mm3 Lymph # 1.7 1.5 (1.2-5.4) K/mm3 Wolfe # 0.4 0.4 (0.0-0.8) K/mm3 Eos # 0.1 0.1 (0.0-0.4) K/mm3 Baso # 0.0 0.0 (0.0-0.1) K/mm3 Comprehensive Metabolic Panel 06/18/19 06/19/19 Range/Units 23:36 05:40 Sodium 139 141 (137-145) mmol/L Potassium 4.3 4.0 (3.6-5.0) mmol/L Chloride 98.8 100.1 (98-107) mmol/L Carbon Dioxide 28 26 (22-30) mmol/L BUN 23 H 21 H (7-17) mg/dL Creatinine 1.1 1.1 (0.7-1.2) mg/dL Glucose 136 H 134 H (65-100) mg/dL Calcium 10.4 H 10.4 H (8.4-10.2) mg/dL AST 15 (5-40) units/L ALT 8 (7-56) units/L Alkaline Phosphatase 65 (35-129) units/L Total Protein 6.9 (6.3-8.2) g/dL Albumin 3.9 (3.9-5) g/dL Laboratory Tests 06/18/19 06/19/19 06/19/19 23:36 02:11 10:16 Troponin T 0.024 0.030 H D 0.020 Triglycerides 63 Cholesterol 206 H LDL Cholesterol Direct 107 HDL Cholesterol 99 H EKG interpretations - Telemetry EKG Rhythm: 1st Degree HB Repolarization changes or abnormalities: nonspecific abnormality, ST segment, and/or T wave Assessment and Plan Minimally elevated troponin with no chest pain,some abdominal pain,which improved,patient has hx. of atreial fibrillation,s/ ablation in S.R,sometimes in 30's and 40's,however,patient is not having any dizziness or syncopal episodes,denies any chest pain. Significance of minimally elevated troponins is not clear. Discussed with patien's son and . Considering patient's symptoms improved with no cardiac symptoms,patient can be discharged home ,and consider pharmacologic MPI as op.(patient is already discharged home,considering son requested to have cardiac w/u as op).Patient does see director of partner marketing at [facility],continue present meds including Eliquis and Metoprolol. - Patient Problems (1) Abdominal pain Current Visit: Yes Status: Acute (2) Biliary calculi Current Visit: Yes Status: Acute (3) Diabetes mellitus Current Visit: No Status: Chronic Qualifiers: Diabetes mellitus type: type 2 (4) H/O cardiac radiofrequency ablation Current Visit: No Status: Chronic (5) Paroxysmal atrial fibrillation Current Visit: No Status: Chronic
[2019-06-20] MEDS ORDERED: ASPIRIN EC 325 MG TAB PO SCH (10:00)
== END 2019-06-19 18:00 | disposition home or self-care (01) ==
LOC: ED 21:09 → INTOOBSV 06-19 03:11 → 2B-ACE 06-19 03:11
PROVIDERS: ADMIT Internal Medicine Geriatric Medicine; ATTEND Internal Medicine
DX: K80.80 Other cholelithiasis without obstruction (principal); R74.8 Abnormal levels of other serum enzymes; E11.9 Type 2 diabetes mellitus without complications; I48.0 Paroxysmal atrial fibrillation; I11.0 Hypertensive heart disease with heart failure; I50.9 Heart failure, unspecified; Z87.891 Personal history of nicotine dependence; Z79.84 Long term (current) use of oral hypoglycemic drugs
CPT/HCPCS: 36415; 74177; 76705; 80048; 80053; 80061; 80162; 81001; 82140; 82550; 82962; 83690; 83735; 84484; 85025; 85610; 85730; 87116; 93005; 93010; 96372; 96374; 99285; G0378; Q9967; 90732